=== PATIENT | female | born 1975 | race Caucasian/White ===

== ENCOUNTER → 2017-07-07 | Outpatient (CLI) | payer BC ==
--- NOTE | 2017-07-08 09:00 | MM ---
Reason for exam: screening (asymptomatic). Baseline mammogram. Physical Findings: Nurse did not find any significant physical abnormalities on exam. MG Screening Mammo w CAD Bilateral CC and MLO view(s) were taken. The breast tissue is heterogeneously dense. This may lower the sensitivity of mammography. No suspicious abnormality. These results were verbally communicated with the patient and result sheet given to the patient on 07/07/17. ASSESSMENT: Negative, BI-RAD 1 RECOMMENDATION: Routine screening mammogram of both breasts in 1 year.
== END | disposition home or self-care (01) ==
LOC: RADMAMWWP 14:44
PROVIDERS: ATTEND Family Medicine
DX: Z12.31 Encounter for screening mammogram for malignant neoplasm of breast (principal)
CPT/HCPCS: 77067

== ENCOUNTER 2018-01-04 12:23 | Emergency (ER) | payer BC ==
[2018-01-04 12:30] VITALS: TEMP 98
[2018-01-04] MEDS ORDERED: ONDANSETRON 4 MG/2 ML VIAL IVP STA (13:16)
[2018-01-04] MEDS ORDERED: MORPHINE SULFATE 2 MG/ML SYRINGE IVP ONE (13:16)
[2018-01-04] MEDS ORDERED: MAG HYDROX/AL HYDROX/SIMETH 30 ML, HYOSCYAMINE ELIXIR 10 ML, CIMETIDINE HCL 300 MG, LID... PO STA ×4 (13:17)
--- NOTE | 2018-01-04 13:19 | ED ---
Abdominal Pain HPI - General Chief Complaint: Abdominal Pain Stated Complaint: upper back pain, radiating to front,nausea, delgado Time Seen by Provider: 01/04/18 12:33 Source: patient, RN notes reviewed Mode of arrival: ambulatory Limitations: no limitations - History of Present Illness Initial Comments: This a 42-year-old female presents emergency Department chief complaint of epigastric pain since last Friday. Patient states been persistent states it initially started in her back. Patient states that she has associated nausea with no vomiting no diarrhea no constipation. Denies any dysuria or hematuria. Patient had a prior cholecystectomy and tubal ligation. 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 She states her mom and sister had surgery on her pancreas. She has no history of pancreatitis. Denies fever, chills. - Related Data Home Medications Medication Instructions Recorded Confirmed HYDROcodone/APAP 7.5-325MG [[place] 1 each PO Q6HR PRN 07/11/14 08/12/15 7.5-325] Cetirizine HCl [Zyrtec] 10 mg PO DAILY 07/12/14 08/12/15 Previous Rx's Medication Instructions Recorded HYDROcodone/APAP 5-325MG [[place] 1 tab PO Q6HR PRN #30 tab 08/12/15 5-325] Naproxen [Naprosyn] 500 mg PO Q12HR #60 tab 08/12/15 Allergies Allergy/AdvReac Type Severity Reaction Status Date / Time ofloxacin [From Floxin] Allergy Rash/Hives Verified 01/04/18 12:30 Penicillins Allergy Rash/Hives Verified 01/04/18 12:30 Review of Systems ROS Statement: Those systems with pertinent positive or pertinent negative responses have been documented in the HPI. ROS Other: All systems not noted in ROS Statement are negative. Past Medical History Past Medical History: Asthma, Seizure Disorder Additional Past Medical History / Comment(s): exercise induced asthma, migraines , hx. seizure >10 yrs. ago, has never had one since-unknown cause History of Any Multi-Drug Resistant Organisms: None Reported Past Surgical History: Appendectomy, Cholecystectomy, Tonsillectomy, Tubal Ligation Additional Past Surgical History / Comment(s): nasal surg. Past Anesthesia/Blood Transfusion Reactions: No Reported Reaction Past Psychological History: Anxiety, Depression Smoking Status: Current every day smoker Past Alcohol Use History: Occasional Past Drug Use History: Marijuana - Past Family History Mother Family Medical History: No Reported History General Exam Limitations: no limitations General appearance: alert, in no apparent distress Head exam: Present: atraumatic, normocephalic, normal inspection Neck exam: Present: normal inspection, full ROM. Absent: tenderness, meningismus, lymphadenopathy Respiratory exam: Present: normal lung sounds bilaterally. Absent: respiratory distress, wheezes, rales, rhonchi, stridor Cardiovascular Exam: Present: regular rate, normal rhythm, normal heart sounds. Absent: systolic murmur, diastolic murmur, rubs, gallop, clicks GI/Abdominal exam: Present: soft, tenderness (mild epigastric), normal bowel sounds. Absent: distended, guarding, rebound, rigid Back exam: Present: full ROM. Absent: tenderness, CVA tenderness (R), CVA tenderness (L), paraspinal tenderness, vertebral tenderness Skin exam: Present: warm, dry, intact, normal color. Absent: rash Course Vital Signs 01/04/18 01/04/18 12:28 14:04 Temperature 98 F Pulse Rate 90 67 Respiratory 18 16 Rate Blood Pressure 148/103 117/79 O2 Sat by Pulse 98 98 Oximetry Medical Decision Making - Medical Decision Making 42-year-old female presents emergency department for abdominal discomfort which has been persistent since last Friday. Patient has evidence of a descending and transverse colitis. Patient is having no bowel movements, melena or hematochezia. Patient states pain has been persistent. Patient will be discharged with follow-up to Dr. Melo her PCP and GI. Return parameters were discussed. - Lab Data Result diagrams: 01/04/18 13:03 01/04/18 13:03 Lab Results 01/04/18 01/04/18 01/04/18 Range/Units 13:03 13:03 13:03 WBC 8.7 (3.8-10.6) k/uL RBC 4.07 (3.80-5.40) m/uL Hgb 11.6 (11.4-16.0) gm/dL Hct 36.2 (34.0-46.0) % MCV 88.9 (80.0-100.0) fL MCH 28.5 (25.0-35.0) pg MCHC 32.1 (31.0-37.0) g/dL RDW 16.3 H (11.5-15.5) % Plt Count 274 (150-450) k/uL Neutrophils % 61 % Lymphocytes % 25 % Monocytes % 6 % Eosinophils % 6 % Basophils % 1 % Neutrophils # 5.3 (1.3-7.7) k/uL Lymphocytes # 2.1 (1.0-4.8) k/uL Monocytes # 0.5 (0-1.0) k/uL Eosinophils # 0.5 (0-0.7) k/uL Basophils # 0.1 (0-0.2) k/uL Hypochromasia Slight Anisocytosis Slight Sodium 139 (137-145) mmol/L Potassium 4.5 (3.5-5.1) mmol/L Chloride 110 H (98-107) mmol/L Carbon Dioxide 21 L (22-30) mmol/L Anion Gap 8 mmol/L BUN 15 (7-17) mg/dL Creatinine 0.78 (0.52-1.04) mg/dL Est GFR (CKD-EPI)AfAm >90 (>60 ml/min/1.73 sqM) Est GFR (CKD-EPI)NonAf >90 (>60 ml/min/1.73 sqM) Glucose 85 (74-99) mg/dL Calcium 9.4 (8.4-10.2) mg/dL Total Bilirubin 0.3 (0.2-1.3) mg/dL AST 12 L (14-36) U/L ALT 22 (9-52) U/L Alkaline Phosphatase 68 (38-126) U/L Total Protein 7.0 (6.3-8.2) g/dL Albumin 4.1 (3.5-5.0) g/dL Amylase 45 (30-110) U/L Lipase 43 (23-300) U/L Urine Color Yellow Urine Appearance Clear (Clear) Urine pH 6.5 (5.0-8.0) Ur Specific [place] 1.017 (1.001-1.035) Urine Protein Negative (Negative) Urine Glucose (UA) Negative (Negative) Urine Ketones Negative (Negative) Urine Blood Moderate H (Negative) Urine Nitrite Negative (Negative) Urine Bilirubin Negative (Negative) Urine Urobilinogen <2.0 (<2.0) mg/dL Ur Leukocyte Esterase Negative (Negative) Urine RBC 9 H (0-5) /hpf Urine WBC <1 (0-5) /hpf Ur Squamous Epith Cells 2 (0-4) /hpf Urine Bacteria Rare H (None) /hpf Urine Mucus Rare H (None) /hpf Disposition Clinical Impression: Abdominal pain, Colitis Disposition: HOME SELF-CARE Condition: Stable Instructions: Colitis (ED) Additional Instructions: Please return to the Emergency Department if symptoms worsen or any other concerns. Is patient prescribed a controlled substance at d/c from ED?: No Referrals: Zafar Melo MD [Primary Care Provider] - 1-2 days Juancarlos Goins MD [STAFF PHYSICIAN] - 1-2 days Time of Disposition: 14:35
[2018-01-04 13:31] LABS: Appearance,Urine Clear (Clear); Bacteria,Urine Rare /hpf; Bilirubin,Urine Negative (Negative); Blood,Urine Moderate (Negative); Color,Urine Yellow; Glucose,Urine (UA) Negative (Negative); Ketones,Urine Negative (Negative); Leukocyte Esterase,Urine Negative (Negative); Mucus,Urine Rare /hpf; Nitrite,Urine Negative (Negative); PH, Urine 6.5 (5.0-8.0); Protein,Urine Negative (Negative); RBC,Urine 9 /hpf (0-5); Specific Gravity,Urine 1.017 (1.001-1.035); Squamous Epithelial Cell,Urine 2 /hpf (0-4); Urobilinogen,Urine <2.0 mg/dL (<2.0); WBC,Urine <1 /hpf (0-5)
[2018-01-04 13:33] LABS: Anisocytosis Slight; Basophils # (A) 0.1 k/uL (0-0.2); Basophils % (A) 1 %; Eosinophils # (A) 0.5 k/uL (0-0.7); Eosinophils % (A) 6 %; HCT 36.2 % (34.0-46.0); HGB 11.6 gm/dL (11.4-16.0); Hypochromasia Slight; Lymphocytes # (A) 2.1 k/uL (1.0-4.8); Lymphocytes % (A) 25 %; MCH 28.5 pg (25.0-35.0); MCHC 32.1 g/dL (31.0-37.0); MCV 88.9 fL (80.0-100.0); Mean Platelet Volume 7.6; Monocytes # (A) 0.5 k/uL (0-1.0); Monocytes % (A) 6 %; Neutrophils # (A) 5.3 k/uL (1.3-7.7); Neutrophils % (A) 61 %; Platelet Count 274 k/uL (150-450); RBC 4.07 m/uL (3.80-5.40); RDW 16.3 % (11.5-15.5); WBC 8.7 k/uL (3.8-10.6)
[2018-01-04 13:41] LABS: Anion Gap 8 mmol/L; Blood Urea Nitrogen 15 mg/dL (7-17); Carbon Dioxide 21 mmol/L (22-30); Chloride 110 mmol/L (98-107); Glucose 85 mg/dL (74-99); Potassium 4.5 mmol/L (3.5-5.1); Sodium 139 mmol/L (137-145)
[2018-01-04 13:42] LABS: ALT 22 U/L (9-52); AST 12 U/L (14-36); Albumin 4.1 g/dL (3.5-5.0); Alkaline Phosphatase 68 U/L (38-126); Amylase 45 U/L (30-110); Calcium 9.4 mg/dL (8.4-10.2); Lipase 43 U/L (23-300); Total Bilirubin 0.3 mg/dL (0.2-1.3)
--- NOTE | 2018-01-04 14:04 | CT ---
EXAMINATION TYPE: CT abdomen pelvis w con DATE OF EXAM: 01/04/2018 REFERENCE: Previous study dated 08/12/2015 HISTORY: Pain HISTORY: epigastric pain CT DLP: 625.5 mGy Automated exposure control for dose reduction was used. TECHNIQUE: Helical acquisition through the abdomen and pelvis was obtained following the oral ingesti on of without Oral Contrast and following intravenous administration of 100 mL of Isovue 300. The floresita a was reformatted in axial, coronal and sagittal projections. FINDINGS: Visualized portions of the lungs are clear. There is no pleural or pericardial fluid. The heart is not enlarged. Within the abdomen, the gallbladder is been removed. Liver and spleen are normal. Both adrenal glands are normal. There is a 1 cm cyst in the mid polar region of the left kidney and a smaller 1 cm cyst in the region of the lower pole of the left kidney there is a 1.4 cm cyst in the lower pole of the right kidney an d a 1.5 cm cyst in the mid polar region of the right kidney. The pancreas is unremarkable. There is no significant retroperitoneal, iliac or inguinal adenopathy. The bladder is unremarkable. The uterus is retroverted. There is evidence of a recent ovulation in the left ovary with a 1.4 cm ir regular enhancing cyst. There is follicular change in the left ovary. There is no significant diverticular change. There is mucosal thickening involving the transverse col on and ascending colons. Small bowel loops are normal in caliber. There is no free fluid and no free air. IMPRESSION: 1. COLONIC THICKENING INVOLVING THE ASCENDING AND TRANSVERSE COLONS. PLEASE CORRELATE FOR COLITIS. 2. RENAL CYSTIC DISEASE BILATERALLY. 3. EVIDENCE OF RECENT OVULATION IN THE LEFT OVARY.
[2018-01-04 14:06] VITALS: PULSE 67; RESP 16
[2018-01-04] MEDS ORDERED: HYDROmorphone 1 MG/ML 1 ML SYRINGE IVP STA (14:40)
[2018-01-04] MEDS ORDERED: methylPREDNISolone SOD SUCCI 125 MG/2 ML VIAL IV STA (14:40)
[2018-01-04] MEDS ORDERED: ACET/COD 300 MG/30 MG STARTER PACK 6 TAB BTL PO STA (14:40)
[2018-01-04] MEDS ORDERED: HYDROmorphone 1 MG/ML 1 ML SYRINGE IM STA (14:52)
[2018-01-04 15:09] VITALS: BP 119/75
== END 2018-01-04 15:10 | disposition home or self-care (01) ==
LOC: EC 12:23
DX: K52.9 Noninfective gastroenteritis and colitis, unspecified (principal); R06.00 Dyspnea, unspecified; F17.200 Nicotine dependence, unspecified, uncomplicated; Z90.49 Acquired absence of other specified parts of digestive tract; Z98.51 Tubal ligation status; Z79.899 Other long term (current) drug therapy; Z88.1 Allergy status to other antibiotic agents; Z88.0 Allergy status to penicillin
CPT/HCPCS: 99284; 96374; 96375 ×2; 96372; 36415; 80053; 82150; 83690; 85025; 81001; 74177; J2930; J2405; J2270; J1170; Q9967

== ENCOUNTER 2018-01-22 10:34 | Day surgery (SDC) | payer BC ==
[2018-01-21 08:26] VITALS: BMI 26.6
[~2018-01-22 10:34] MED LIST: LIDOCAINE 1% 20 ML VIAL (10MG/ML) FOR IV START INTRADERMA PRN
[2018-01-22 11:02] VITALS: TEMP 98
[2018-01-22] MEDS: LACTATED RINGERS 1,000 ML IV SCH ×2 (11:09→11:36)
[2018-01-22] MEDS ORDERED: MIDAZOLAM 2 MG/2 ML VIAL ONE (11:36)
[2018-01-22] MEDS ORDERED: PROPOFOL 10 MG/ML 20 ML VIAL IV ONE (11:36)
--- NOTE | 2018-01-22 12:50 | P.PCN ---
Date of Procedure: 01/22/18 Description of Procedure: Brief history: Patient is a pleasant 42-year-old female who presents for scheduled upper endoscopy as well as colonoscopy as a part of evaluation of recent symptoms of esophageal dysphagia as well as a computed tomography scan which showed colonic thickening of the ascending transverse colon last month. The patient reports that the dysphagia is new onset and describes food sticking in her esophagus. She also had a computed tomography scan of the abdomen done last month which showed colonic thickening but denies any change in bowel habits, constipation, diarrhea, hematochezia or melena. Procedure performed: Esophagogastroduodenoscopy with biopsy Colonoscopy Estimated blood loss: Minimal. Preoperative diagnosis: Esophageal dysphagia, abnormal CT findings (colonic thickening of the ascending and transverse colons) Anesthesia: MAC Procedure: After informed consent was obtained from the patient was brought into the endoscopy unit and IV sedation was administered by anesthesia under continuous monitoring. Initially upper endoscopy was done. The Olympus GF 190 video endoscope was inserted inserted into the mouth and esophagus intubated without any difficulty and was gradually advanced into the stomach and duodenum and carefully examined. The bulb and second part of the duodenum appeared normal except for some mild scattered erythema suggestive of duodenitis which was biopsied. The scope was then withdrawn into the stomach adequately insufflated with air and upon careful examination the antrum and body, cardia and fundus appeared grossly normal. The patient had erythema which was scattered and linear, moderate in severity of the antrum and body which were biopsied, suggestive of gastritis. The scope was then withdrawn into the esophagus. The GE junction was located at 37 cm to the incisors. It appeared regular with no erythema erosions or ulcerations. Biopsies of the midesophagus were taken to rule out eosinophilic esophagitis given reports of dysphagia. Rest of the esophagus appeared normal. Patient tolerated the procedure well. At this time the patient continued to remain sedation. Initial digital rectal examination was normal. Olympus CF 190 video colonoscope was then inserted into the rectum and gradually advanced to the cecum without any difficulty. Careful examination was performed as the scope was gradually being withdrawn. The prep was good. The cecum, ascending colon, transverse colon, descending colon, sigmoid colon and rectum appeared normal. Retroflexion was performed in the rectum and no lesions were noted, mild internal hemorrhoids were seen. Patient tolerated the procedure well. Impression: 1. Gastritis, biopsied. Duodenitis, biopsied. Mid esophageal biopsies for dysphagia. 2. Mild internal hemorrhoids, otherwise colonoscopy unremarkable with no colitis seen in the areas described on prior computed tomography scan. Recommendations: Findings of this examination were discussed with the patient as well as her friend. Okay to continue diet. Await pathology from biopsies. Further management pending findings of biopsies. Repeat colonoscopy at 50 years of age or sooner if further signs or symptoms develop.
[2018-01-22 13:04] VITALS: BP 107/63; PULSE 77; RESP 16
== END 2018-01-22 13:23 | disposition home or self-care (01) ==
LOC: ORWHC2ENDO 10:34
PROVIDERS: ATTEND Internal Medicine
DX: K29.50 Unspecified chronic gastritis without bleeding (principal); K21.0 Gastro-esophageal reflux disease with esophagitis; K29.80 Duodenitis without bleeding; K64.8 Other hemorrhoids; R93.3 Abnormal findings on diagnostic imaging of other parts of digestive tract; J45.909 Unspecified asthma, uncomplicated; R56.9 Unspecified convulsions; Z79.891 Long term (current) use of opiate analgesic; Z88.1 Allergy status to other antibiotic agents; Z88.0 Allergy status to penicillin; Z98.51 Tubal ligation status
CPT/HCPCS: 81025; 88305; 45378; 43239; J2250; J2704

== ENCOUNTER 2021-07-30 12:48 | Inpatient (IN) | payer BC, OTHER ==
--- NOTE | 2021-07-30 14:50 | US ---
EXAMINATION TYPE: US venous doppler duplex UE RT DATE OF EXAM: 07/30/2021 COMPARISON: NONE CLINICAL HISTORY: pain and swelling. swelling to right arm and neck for 3 days, no h/o dvt SIDE PERFORMED: Right Right Arm: No flow detected within right brachial vein branch extending up through mid subclavian vei n, internal echoes, not compressible. Upper arm basilic did not compress or have blood flow either. P robable DVT and SVT within right arm Grayscale, color doppler, spectral doppler imaging performed of the deep veins of the right upper ext remity. There is normal flow, compressibility and vascular waveforms. IMPRESSION: No ultrasound evidence for acute deep or superficial venous thrombosis in the right upper extremity.
[2021-07-30] MEDS ORDERED: MORPHINE SULFATE 2 MG/ML SYRINGE IVP STA (16:30)
[2021-07-30 17:03] LABS: Anisocytosis Slight; Basophils # (A) 0.1 k/uL (0-0.2); Basophils % (A) 1 %; Eosinophils # (A) 0.2 k/uL (0-0.7); Eosinophils % (A) 2 %; HCT 33.9 % (34.0-46.0); HGB 10.6 gm/dL (11.4-16.0); Hypochromasia Slight; Lymphocytes # (A) 1.8 k/uL (1.0-4.8); Lymphocytes % (A) 19 %; MCHC 31.4 g/dL (31.0-37.0); MCV 92.6 fL (80.0-100.0); Mean Platelet Volume 8.6; Monocytes # (A) 0.4 k/uL (0-1.0); Monocytes % (A) 4 %; Neutrophils # (A) 7.1 k/uL (1.3-7.7); Neutrophils % (A) 73 %; Platelet Count 308 k/uL (150-450); RBC 3.66 m/uL (3.80-5.40); WBC 9.8 k/uL (3.8-10.6)
[2021-07-30 17:23] LABS: ALT 14 U/L (4-34); AST 14 U/L (14-36); African American GFR (CKD) >90 (>60 ml/min/1.73 sqM); Albumin 3.7 g/dL (3.5-5.0); Alkaline Phosphatase 78 U/L (38-126); Anion Gap 8 mmol/L; Blood Urea Nitrogen 9 mg/dL (7-17); Calcium 8.6 mg/dL (8.4-10.2); Carbon Dioxide 23 mmol/L (22-30); Chloride 108 mmol/L (98-107); Glucose 100 mg/dL (74-99); Non-African American GFR(CKD) >90 (>60 ml/min/1.73 sqM); Potassium 3.8 mmol/L (3.5-5.1); Sodium 139 mmol/L (137-145); Total Bilirubin 0.2 mg/dL (0.2-1.3); Total Protein 6.4 g/dL (6.3-8.2)
--- NOTE | 2021-07-30 17:35 | ED ---
Extremity Problem HPI - General Source: patient, RN notes reviewed Mode of arrival: ambulatory Limitations: no limitations - History of Present Illness MD Complaint: extremity pain, extremity swelling Onset/Timin -: days(s) Location: right, upper extremity History of Same: No <Maria C Basilio - Last Filed: 07/30/21 19:20> <Ester Mcgarry - Last Filed: 08/01/21 08:52> - General Chief complaint: Extremity Problem,Nontraumatic Stated complaint: Arm Pain,Pos Blood Clot Time Seen by Provider: 07/30/21 15:56 - History of Present Illness Initial comments: This is a 45-year-old female who presents to the emergency department for pain and swelling of the right arm and axilla. Symptoms have been present for the last few days, and have been progressing. She was initially evaluated at urgent care, who advised she come to the emergency department for a possible blood clot. Patient states that she is unable to sleep at night due to the pain, and she has tried taking [place] which she had at home from a previous prescription, and this has not offered any relief. States that she feels like the pain is traveling to her back and upper neck which scares her. She does have intermittent episodes of shortness of breath, chest pain, and tachycardia. She is unsure if this has worsened since experiencing the swelling. Denies any history of blood clots. Patient denies any fevers, chills, sore throat, visual changes, cough, abdominal pain, nausea, vomiting, diarrhea, constipation, dysuria, hematuria, back pain, headaches, or weakness. (Maria C Basilio) - Related Data Previous Rx's Medication Instructions Recorded Apixaban [Eliquis Starter Pack 5 - 10 mg PO DIRECTED 30 Days 07/31/21 (for VTE)] #1 each Allergies Allergy/AdvReac Type Severity Reaction Status Date / Time ofloxacin [From Floxin] Allergy Rash/Hives Verified 07/30/21 16:59 Penicillins Allergy Rash/Hives Verified 07/30/21 16:59 Review of Systems ROS Other: All systems not noted in ROS Statement are negative. <Maria C Basilio - Last Filed: 07/30/21 19:20> ROS Other: All systems not noted in ROS Statement are negative. <Ester Mcgarry - Last Filed: 08/01/21 08:52> ROS Statement: Those systems with pertinent positive or pertinent negative responses have been documented in the HPI. Past Medical History Past Medical History: Asthma, Musculoskeletal Disorder, Seizure Disorder Additional Past Medical History / Comment(s): migraines, hx. seizure >10 yrs. ago, has never had one since-unknown cause; back pain History of Any Multi-Drug Resistant Organisms: None Reported Past Surgical History: Appendectomy, Cholecystectomy, Tonsillectomy, Tubal Ligation Additional Past Surgical History / Comment(s): nasal surg. Past Anesthesia/Blood Transfusion Reactions: No Reported Reaction Past Psychological History: Anxiety, Depression Smoking Status: Current every day smoker Past Alcohol Use History: Occasional Past Drug Use History: Marijuana - Past Family History Mother Family Medical History: No Reported History <Maria C Basilio - Last Filed: 07/30/21 19:20> General Exam Limitations: no limitations General appearance: alert, in no apparent distress Head exam: Present: atraumatic, normocephalic, normal inspection Respiratory exam: Present: normal lung sounds bilaterally. Absent: respiratory distress, wheezes, rales, rhonchi, stridor Cardiovascular Exam: Present: regular rate, normal rhythm, normal heart sounds. Absent: systolic murmur, diastolic murmur, rubs, gallop, clicks Extremities exam: Present: other (Swelling of the right arm, starting at the antecubital fossa and spreading proximally. Swelling of the right axilla. No erythema.) Neurological exam: Present: alert, oriented X3, CN II-XII intact Psychiatric exam: Present: normal affect, normal mood Skin exam: Present: warm, dry, intact, normal color. Absent: rash <Maria C Basilio - Last Filed: 07/30/21 19:20> Course Vital Signs 07/30/21 07/30/21 07/30/21 13:50 20:34 23:59 Temperature 98.1 F Pulse Rate 70 71 58 L Respiratory 16 18 18 Rate Blood Pressure 149/86 142/79 143/82 O2 Sat by Pulse 99 98 98 Oximetry 07/31/21 07/31/21 07/31/21 06:32 08:22 13:27 Temperature Pulse Rate 84 64 69 Respiratory 18 18 18 Rate Blood Pressure 124/70 146/79 109/70 O2 Sat by Pulse 100 100 99 Oximetry 07/31/21 14:55 Temperature Pulse Rate 64 Respiratory 18 Rate Blood Pressure 114/84 O2 Sat by Pulse 95 Oximetry Medical Decision Making - Lab Data Result diagrams: 07/30/21 16:35 07/30/21 16:35 - Radiology Data Radiology results: report reviewed, image reviewed <Maria C Basilio - Last Filed: 07/30/21 19:20> - Lab Data Result diagrams: 08/01/21 06:10 08/01/21 06:10 <MalgorzataSeter Andrea - Last Filed: 08/01/21 08:52> - Medical Decision Making This is a 45-year-old female who presents to the emergency department for right arm pain and swelling. Ultrasound reveals a DVT. Given that the pain is spreading, and the patient is unsure if she has had worsening of palpitations, tachycardia, or shortness of breath, will proceed with a CTA for possible PE. CTA reveals scattered pulmonary emboli with possible mild right heart strain. Patient will be admitted and started on high intensity heparin protocol with vascular consult. Echocardiogram ordered. This case was discussed in detail with the attending ED physician. Presentation, findings, and treatment plan discussed in detail as well. (Maria C Basilio) - Lab Data Lab Results 07/30/21 07/30/21 07/30/21 Range/Units 16:35 16:35 18:03 WBC 9.8 (3.8-10.6) k/uL RBC 3.66 L (3.80-5.40) m/uL Hgb 10.6 L (11.4-16.0) gm/dL Hct 33.9 L (34.0-46.0) % MCV 92.6 (80.0-100.0) fL MCH 29.0 (25.0-35.0) pg MCHC 31.4 (31.0-37.0) g/dL RDW 17.0 H (11.5-15.5) % Plt Count 308 (150-450) k/uL MPV 8.6 Neutrophils % 73 % Lymphocytes % 19 % Monocytes % 4 % Eosinophils % 2 % Basophils % 1 % Neutrophils # 7.1 (1.3-7.7) k/uL Lymphocytes # 1.8 (1.0-4.8) k/uL Monocytes # 0.4 (0-1.0) k/uL Eosinophils # 0.2 (0-0.7) k/uL Basophils # 0.1 (0-0.2) k/uL Hypochromasia Slight Anisocytosis Slight PT (9.0-12.0) sec INR (<1.2) APTT (22.0-30.0) sec Sodium 139 (137-145) mmol/L Potassium 3.8 (3.5-5.1) mmol/L Chloride 108 H (98-107) mmol/L Carbon Dioxide 23 (22-30) mmol/L Anion Gap 8 mmol/L BUN 9 (7-17) mg/dL Creatinine 0.67 (0.52-1.04) mg/dL Est GFR (CKD-EPI)AfAm >90 (>60 ml/min/1.73 sqM) Est GFR (CKD-EPI)NonAf >90 (>60 ml/min/1.73 sqM) Glucose 100 H (74-99) mg/dL Calcium 8.6 (8.4-10.2) mg/dL Total Bilirubin 0.2 (0.2-1.3) mg/dL AST 14 (14-36) U/L ALT 14 (4-34) U/L Alkaline Phosphatase 78 (38-126) U/L Troponin I <0.012 (0.000-0.034) ng/mL NT-Pro-B Natriuret Pep pg/mL Total Protein 6.4 (6.3-8.2) g/dL Albumin 3.7 (3.5-5.0) g/dL 07/30/21 07/30/21 Range/Units 18:03 18:03 WBC (3.8-10.6) k/uL RBC (3.80-5.40) m/uL Hgb (11.4-16.0) gm/dL Hct (34.0-46.0) % MCV (80.0-100.0) fL MCH (25.0-35.0) pg MCHC (31.0-37.0) g/dL RDW (11.5-15.5) % Plt Count (150-450) k/uL MPV Neutrophils % % Lymphocytes % % Monocytes % % Eosinophils % % Basophils % % Neutrophils # (1.3-7.7) k/uL Lymphocytes # (1.0-4.8) k/uL Monocytes # (0-1.0) k/uL Eosinophils # (0-0.7) k/uL Basophils # (0-0.2) k/uL Hypochromasia Anisocytosis PT 10.1 (9.0-12.0) sec INR 0.9 (<1.2) APTT 18.0 L (22.0-30.0) sec Sodium (137-145) mmol/L Potassium (3.5-5.1) mmol/L Chloride (98-107) mmol/L Carbon Dioxide (22-30) mmol/L Anion Gap mmol/L BUN (7-17) mg/dL Creatinine (0.52-1.04) mg/dL Est GFR (CKD-EPI)AfAm (>60 ml/min/1.73 sqM) Est GFR (CKD-EPI)NonAf (>60 ml/min/1.73 sqM) Glucose (74-99) mg/dL Calcium (8.4-10.2) mg/dL Total Bilirubin (0.2-1.3) mg/dL AST (14-36) U/L ALT (4-34) U/L Alkaline Phosphatase (38-126) U/L Troponin I (0.000-0.034) ng/mL NT-Pro-B Natriuret Pep 78 pg/mL Total Protein (6.3-8.2) g/dL Albumin (3.5-5.0) g/dL Critical Care Time Critical Care Time: Yes <Ester Mcgarry - Last Filed: 08/01/21 08:52> Critical Care Time: 32 minutes (Ester Mcgarry) Disposition <Maria C Basilio - Last Filed: 07/30/21 19:20> <Ester Mcgarry - Last Filed: 08/01/21 08:52> Clinical Impression: Deep vein thrombosis (DVT) of upper extremity, Pulmonary embolism Disposition: ADMITTED IP TO THIS HOSP
--- NOTE | 2021-07-30 17:46 | CT ---
EXAMINATION TYPE: CT chest angio for PE CT DLP: 286.1 mGycm, Automated exposure control for dose reduction was used. DATE OF EXAM: 07/30/2021 5:10 PM COMPARISON: Right upper extremity duplex 07/30/2021 CLINICAL INDICATION:Female, 45 years old with history of back pain, tachycardia, right arm DVT; right arm DVT, posterior chest pain, tachycardia TECHNIQUE/CONTRAST: CTA scan of the thorax is performed with IV Contrast, patient injected with 68cc mL of Isovue 370, pu lmonary embolism protocol. MIP images are created and reviewed. FINDINGS: Pulmonary Artery: There are filling defects in within the right lower lobe, right upper lobe, left up per lobe subsegmental pulmonary arteries. No definitive evidence of intraventricular septal straighte galdino. Lungs/Pleura: No evidence of focal consolidation, pleural effusion or pneumothorax. Airway: Large airways are patent. Heart: Heart is within normal limits for size. Vasculature: No evidence of aortic aneurysm. Mediastinum: No gross evidence of adenopathy. Musculoskeletal: Mild degenerative disc disease changes are present throughout the thoracolumbar spin e. Soft Tissues: There is fat stranding changes within the right axilla surrounding the axillary vessels . Lower neck: No significant findings. Upper Abdomen: Gallbladder is surgically absent. Nonobstructing left renal calculus measuring 5 mm. IMPRESSION: 1. Scattered pulmonary emboli with reflux of contrast into the liver which could suggest mild right h eart strain. Correlate with serum cardiac markers. 2. Right axillary fat stranding changes around the vessels so it known right upper extremity deep vei n thrombosis.
[2021-07-30 18:40] LABS: INR 0.9 (<1.2); Prothrombin Time 10.1 sec (9.0-12.0)
[2021-07-30] MEDS ORDERED: HYDROmorphone 0.5 MG/0.5 ML SYRINGE IVP STA (18:55)
[2021-07-30] MEDS ORDERED: KETOROLAC 15 MG/ML 1 ML VIAL IVP STA (18:55)
[2021-07-30] MEDS ORDERED: HEPARIN SODIUM 1,000 UN/ML (10ML VL) IV ONE (19:03)
[2021-07-30] MEDS ORDERED: HEPARIN SODIUM 1,000 UN/ML (10ML VL) IV PRN (19:03)
[2021-07-30] MEDS ORDERED: LORazepam 0.5 MG TAB PO PRN (19:18)
[2021-07-30] MEDS ORDERED: NALOXONE 0.4 MG/ML 1 ML VIAL IV PRN (19:18)
[2021-07-30] MEDS ORDERED: ONDANSETRON 4 MG/2 ML VIAL IVP PRN (19:18)
[2021-07-30] MEDS ORDERED: HYDROmorphone 0.5 MG/0.5 ML SYRINGE IVP PRN (19:18)
[2021-07-30] MEDS ORDERED: ACETAMINOPHEN TAB 325 MG TAB PO PRN (19:18)
[2021-07-30] MEDS: HEPARIN SOD,PORK IN 0.45% NACL 25,000 UNIT in 0.45% NACL 1 250ML.BAG IV SCH (20:03)
[2021-07-31] MEDS: HYDROmorphone 1 MG/ML 1 ML SYRINGE IVP PRN ×5 (02:37→21:49)
[2021-07-31] MEDS: lisinopriL 5 MG TAB PO SCH (08:23)
[2021-07-31] MEDS: NICOTINE 14MG/24HR PATCH TRANSDERM SCH (08:23)
[2021-07-31 09:01] LABS: Anisocytosis Slight; Basophils # (A) 0.1 k/uL (0-0.2); Basophils % (A) 1 %; Eosinophils # (A) 0.3 k/uL (0-0.7); Eosinophils % (A) 4 %; HGB 9.9 gm/dL (11.4-16.0); Hypochromasia Slight; Lymphocytes # (A) 2.5 k/uL (1.0-4.8); Lymphocytes % (A) 32 %; MCH 28.2 pg (25.0-35.0); MCHC 30.1 g/dL (31.0-37.0); MCV 93.8 fL (80.0-100.0); Mean Platelet Volume 8.7; Monocytes # (A) 0.5 k/uL (0-1.0); Monocytes % (A) 6 %; Neutrophils # (A) 4.3 k/uL (1.3-7.7); Neutrophils % (A) 54 %; Platelet Count 288 k/uL (150-450); RBC 3.52 m/uL (3.80-5.40); RDW 16.3 % (11.5-15.5); WBC 7.8 k/uL (3.8-10.6)
--- NOTE | 2021-07-31 10:29 | CA ---
Transthoracic Echo Report Name: Domonique Berg Age: 45 Gender: F : 1975 Exam Date: 07/31/2021 07:26 Exam Location: [facility] Ht (in): 64 Wt (lb): 154 Ordering Physician: Maria C Basilio Attending/Referring Phys: Chairman Sabine Leiva RDCS Procedure CPT: Indications: Pulmonary embolism with right heart strain Cardiac Hx: No cardiac hx. Technical Quality: Good Contrast 1: Total Dose (mL): Contrast 2: Total Dose (mL): MEASUREMENTS (Male / Female) Normal Values 2D ECHO LV Diastolic Diameter PLAX 3.6 cm 4.2 - 5.9 / 3.9 - 5.3 cm LV Systolic Diameter PLAX 1.9 cm IVS Diastolic Thickness 1.1 cm 0.6 - 1.0 / 0.6 - 0.9 cm LVPW Diastolic Thickness 1.2 cm 0.6 - 1.0 / 0.6 - 0.9 cm LV Relative Wall Thickness 0.6 RV Internal Dim ED PLAX 1.9 cm LA Volume 37.4 cm??? 18 - 58 / 22 - 52 cm??? M-MODE Aortic Root Diameter MM 3.0 cm LA Systolic Diameter MM 2.2 cm LA Ao Ratio MM 0.7 MV E Point Septal Separation 0.8 cm AV Cusp Separation MM 1.8 cm DOPPLER AV Peak Velocity 137.0 cm/s AV Peak Gradient 7.5 mmHg MV Area PHT 3.7 cm??? MR Peak Velocity 182.7 cm/s MR Peak Gradient 13.4 mmHg Mitral E Point Velocity 102.6 cm/s Mitral A Point Velocity 57.8 cm/s Mitral E to A Ratio 1.8 MV Deceleration Time 205.1 ms MV E' Velocity 14.3 cm/s Mitral E to MV E' Ratio 7.2 TR Peak Velocity 203.2 cm/s TR Peak Gradient 16.5 mmHg Right Ventricular Systolic Press 19.9 mmHg FINDINGS Left Ventricle Mildly increased septal wall thickness. Mildly increased posterior wall thickness. Left ventricular ejection fraction is estimated at 55-60 %. Left ventricular cavity size normal. Right Ventricle The right ventricle is normal in size and function. No RV strain. TAPSE is 28mm. Right Atrium The right atrium is normal in size. Left Atrium The left atrium is normal in size. Mitral Valve Structurally normal mitral valve without significant stenosis or prolapse. There is no mitral regurgitation. Aortic Valve Structurally normal aortic valve without significant sclerosis or stenosis. There is no aortic regurgitation. Tricuspid Valve Structurally normal tricuspid valve without significant stenosis. Pulmonary artery systolic pressure is normal. Mild tricuspid regurgitation. Pulmonic Valve Structurally normal pulmonic valve without significant stenosis. There is no pulmonic regurgitation. Pericardium Normal pericardium without effusion. Aorta Normal aortic root dimension. CONCLUSIONS Technically difficult study for interpretation with poor echo windows Normal left ventricular dimension and systolic function Mild concentric left ventricular hypertrophy Overall normal intracardiac valves Please see above for further details Previewed by: Dr. Dima Doan MD (Electronically Signed) Final Date: 31 Jul 2021 10:27
--- NOTE | 2021-07-31 10:35 | P.GSCN ---
History of Present Illness Consult date: 07/31/21 Reason for Consult: Pulmonary embolism, right upper extremity DVT Requesting physician: Maria C Basilio History of present illness: This is a pleasant 45-year-old female who presented to the emergency department yesterday with complaints of right upper extremity swelling, discomfort, that was radiating into her neck. Symptoms began approximately 1 week ago. She had a upper extremity Doppler that showed extensive acute DVT in the brachial vein extending to the right axillary vein into the mid aspect of the subclavian vein. There is patent cephalic vein but occluded superficial basilic vein noted. Patient was also complaining of some shortness of breath therefore is part of her workup they did a chest CT angiogram that showed scattered bilateral emboli, with questionable mild right heart strain as there was reflux of contrast into the liver. Patient had troponins which were negative 3. Blood pressure 146/79, heart rate 64 respiratory rate 18. Oxygen is 98-100% on room air. She denies any previous history of blood clots, or clotting disorders. She states she does have a brother who has a history of DVTs however it was related to automobile accident injuries. Does admit to being a smoker, she recently went on a trip to [place] and flu their last Friday and return on Friday. So states she has lower extremity issues with varicose veins. She's had previous varicose vein stripping in the left lower extremity. Really denies any pain in her lower extremities but states that she was just given pain medication. She states that they do ache frequently. 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 Review of Systems A 14 point review systems was completed all pertinent positives and negatives as stated in the HPI. Past Medical History Past Medical History: Asthma, Musculoskeletal Disorder, Seizure Disorder Additional Past Medical History / Comment(s): migraines, hx. seizure >10 yrs. ago, has never had one since-unknown cause; back pain History of Any Multi-Drug Resistant Organisms: None Reported Past Surgical History: Appendectomy, Cholecystectomy, Tonsillectomy, Tubal Ligation Additional Past Surgical History / Comment(s): nasal surg. Past Anesthesia/Blood Transfusion Reactions: No Reported Reaction Past Psychological History: Anxiety, Depression Smoking Status: Current every day smoker Past Alcohol Use History: Occasional Past Drug Use History: Marijuana - Past Family History Mother Family Medical History: No Reported History Medications and Allergies Home Medications Medication Instructions Recorded Confirmed Type Apixaban [Eliquis Starter Pack 5 - 10 mg PO DIRECTED 30 Days 07/31/21 Rx (for VTE)] #1 each Allergies Allergy/AdvReac Type Severity Reaction Status Date / Time ofloxacin [From Floxin] Allergy Rash/Hives Verified 07/30/21 16:59 Penicillins Allergy Rash/Hives Verified 07/30/21 16:59 Surgical - Exam Vital Signs Temp Pulse Resp BP Pulse Ox 98.1 F 70 16 149/86 99 07/30/21 13:50 07/30/21 13:50 07/30/21 13:50 07/30/21 13:50 07/30/21 13:50 General appearance: The patient is alert, oriented, appears in no acute distress. HET: Head is normocephalic and atraumatic. Pupils are equal and reactive. Neck: Supple without lymphadenopathy. Trachea midline. Heart: S1 S2. Regular rate and rhythm. Lungs: Clear to auscultation bilaterally. Abdomen: Soft, nontender, nondistended. Extremities: Normal skin color and turgor. Right upper extremity with noted swelling from the elbow to shoulder and in the axilla region. Bilateral lower extremities with palpable PT and DP pulses. Varicose veins noted on the left lower extremity. Neurological: No focal deficits. Strength and sensation are grossly intact. Results - Labs 07/31/21 08:08 07/30/21 16:35 Abnormal Lab Results - Last 24 Hours (Table) 07/30/21 07/30/21 07/30/21 Range/Units 16:35 16:35 18:03 RBC 3.66 L (3.80-5.40) m/uL Hgb 10.6 L (11.4-16.0) gm/dL Hct 33.9 L (34.0-46.0) % RDW 17.0 H (11.5-15.5) % APTT 18.0 L (22.0-30.0) sec Chloride 108 H (98-107) mmol/L Glucose 100 H (74-99) mg/dL 07/31/21 Range/Units 00:22 RBC (3.80-5.40) m/uL Hgb (11.4-16.0) gm/dL Hct (34.0-46.0) % RDW (11.5-15.5) % APTT 67.3 H (22.0-30.0) sec Chloride (98-107) mmol/L Glucose (74-99) mg/dL Diabetes panel 07/30/21 Range/Units 16:35 Sodium 139 (137-145) mmol/L Potassium 3.8 (3.5-5.1) mmol/L Chloride 108 H (98-107) mmol/L Carbon Dioxide 23 (22-30) mmol/L BUN 9 (7-17) mg/dL Creatinine 0.67 (0.52-1.04) mg/dL Glucose 100 H (74-99) mg/dL Calcium 8.6 (8.4-10.2) mg/dL AST 14 (14-36) U/L ALT 14 (4-34) U/L Alkaline Phosphatase 78 (38-126) U/L Total Protein 6.4 (6.3-8.2) g/dL Albumin 3.7 (3.5-5.0) g/dL Calcium panel 07/30/21 Range/Units 16:35 Calcium 8.6 (8.4-10.2) mg/dL Albumin 3.7 (3.5-5.0) g/dL Pituitary panel 07/30/21 Range/Units 16:35 Sodium 139 (137-145) mmol/L Potassium 3.8 (3.5-5.1) mmol/L Chloride 108 H (98-107) mmol/L Carbon Dioxide 23 (22-30) mmol/L BUN 9 (7-17) mg/dL Creatinine 0.67 (0.52-1.04) mg/dL Glucose 100 H (74-99) mg/dL Calcium 8.6 (8.4-10.2) mg/dL Adrenal panel 07/30/21 Range/Units 16:35 Sodium 139 (137-145) mmol/L Potassium 3.8 (3.5-5.1) mmol/L Chloride 108 H (98-107) mmol/L Carbon Dioxide 23 (22-30) mmol/L BUN 9 (7-17) mg/dL Creatinine 0.67 (0.52-1.04) mg/dL Glucose 100 H (74-99) mg/dL Calcium 8.6 (8.4-10.2) mg/dL Total Bilirubin 0.2 (0.2-1.3) mg/dL AST 14 (14-36) U/L ALT 14 (4-34) U/L Alkaline Phosphatase 78 (38-126) U/L Total Protein 6.4 (6.3-8.2) g/dL Albumin 3.7 (3.5-5.0) g/dL - Imaging Comments: Right upper extremity venous Doppler that showed extensive acute DVT in the brachial vein extending to the right axillary vein into the mid aspect of the subclavian vein. Chest CT angiogram report scattered pulmonary emboli with reflux of contrast in to the liver which could suggest mild right heart strain. Correlate with serum cardiac markers. Right axillary fat stranding changes around the vessels so it is known right upper extremity deep vein thrombosis Echocardiogram with no RV strain. Assessment and Plan Assessment: 1. Bilateral pulmonary emboli without evidence of right heart strain 2. Right upper extremity DVT 3. Current smoker Plan: 1. Continue heparin drip for now, will transition to oral anticoagulation 2. Await echocardiogram 3. Bilateral lower extremity venous duplex ordered 4. Tobacco cessation 5. No plans for vascular surgical intervention at this time. Echocardiogram with no evidence of right heart strain. We'll discontinue heparin drip at this time and start Eliquis. Mando is cleared for discharge from vascular surgery. Follow-up with vascular surgery and 1 month. Thank you for this consultation. The impression and plan of care has been dictated as directed. Dr. Ingram I performed a history and examination of this patient, discussed the same with the dictator. I agree with the dictator's note ,documented as a scribe. Any additional findings or plans will be noted.
--- NOTE | 2021-07-31 13:22 | P.HPIM ---
History of Present Illness H&P Date: 07/31/21 Chief Complaint: right upper extremity swelling Patient is a 45-year-old female with a known history of asthma, anxiety/depression, migraine headaches, history of seizure 10 years ago not on any AEDs, currently everyday smoker and occasional marijuana use presents to ER with complaints of right upper extremity swelling for the past 3 days and has been having discomfort in the axilla, u upper arm upper arm radiating to the neck. She has been having worsening symptoms for the past 3 days. Denied any injury to the hand. 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 Denied any leg swelling. No complaints of chest pain. No dizziness or lightheadedness. Denies any pleuritic chest pain. Left upper extremity duplex scan showed extensive acute DVT in the brachial vein extending to the right axillary vein into the mid aspect of the subclavian vein. There is patent cephalic vein but occluded superficial basilic vein noted. CT angiogram of the chest showed scattered pulmonary emboli with reflux of contrast into the liver which could suggest mild right heart strain. Correlate with serum cardiac markers. Right axillary fat stranding changes around the vessels so it is known right upper extremity DVT 2D echocardiogram showed mildly increased septal wall thickness of the left ventricle. Right ventricle is normal in size and function. No RV strain. Overall normal intracardiac valves. Laboratory test showed WBC is 9.8 hemoglobin 10.6 and platelets 308 Sodium 139 potassium 3.8 chloride 108 bicarb is 23 BUN 8 and creatinine 0.67 liver enzymes are not elevated and troponin x3 negative proBNP 78 Patient denied any use of oral contraceptive pills currently. No family history of hypercoagulability. Patient denied any weight loss. No hematemesis or melena. Currently complains of abdominal pain. No cough sputum production. Denied any hemoptysis. Denied any recent illnesses. Denied any recent COVID-19 infection. Review of Systems Constitutional: Patient denies any fever or chills . No generalized weakness or weight loss. Abdomen: Patient denied nausea vomiting and diarrhea and abdominal pain. Cardiovascular: Patient denies any chest pain or short of breath no palpitations. Respiratory: patient denied any cough is from production. No shortness of breath Neurologic: Patient denied any numbness or tingling headache. Musculoskeletal: Patient denies any complaints of joint swelling or deformity.right hand swelling. Skin: Negative Psychiatric: Negative Endocrine: No heat or cold intolerance. No recent weight gain. Genitourinary: No dysuria or hematuria. All other 14 point ROS negative except the above Past Medical History Past Medical History: Asthma, Musculoskeletal Disorder, Seizure Disorder Additional Past Medical History / Comment(s): migraines, hx. seizure >10 yrs. ago, has never had one since-unknown cause; back pain History of Any Multi-Drug Resistant Organisms: None Reported Past Surgical History: Appendectomy, Cholecystectomy, Tonsillectomy, Tubal Ligation Additional Past Surgical History / Comment(s): nasal surg. Past Anesthesia/Blood Transfusion Reactions: No Reported Reaction Past Psychological History: Anxiety, Depression Smoking Status: Current every day smoker Past Alcohol Use History: Occasional Past Drug Use History: Marijuana - Past Family History Mother Family Medical History: No Reported History Medications and Allergies Home Medications Medication Instructions Recorded Confirmed Type Apixaban [Eliquis Starter Pack 5 - 10 mg PO DIRECTED 30 Days 07/31/21 Rx (for VTE)] #1 each Allergies Allergy/AdvReac Type Severity Reaction Status Date / Time ofloxacin [From Floxin] Allergy Rash/Hives Verified 07/30/21 16:59 Penicillins Allergy Rash/Hives Verified 07/30/21 16:59 Physical Exam Vitals: Vital Signs Temp Pulse Resp BP Pulse Ox 07/31/21 08:22 64 18 146/79 100 07/31/21 06:32 84 18 124/70 100 07/30/21 23:59 58 L 18 143/82 98 07/30/21 20:34 71 18 142/79 98 07/30/21 13:50 98.1 F 70 16 149/86 99 Intake and Output 07/30/21 07/31/21 07/31/21 22:59 06:59 14:59 Intake Total 75.863 Balance 75.863 Intake: Intake, IV Titration 75.863 Amount Heparin Sod,Pork in 0.45% 75.863 NaCl 25,000 unit In 0.45 % NaCl 1 250ml.bag @ 18 UNITS/KG/HR 12.574 mls/hr IV .[id number] [facility] Rx#: [id number] PHYSICAL EXAMINATION: Patient is lying in the bed comfortably, no acute distress, awake alert and oriented.. HEENT: Normocephalic. Neck is supple. Pupils reactive. Nostrils clear. Oral cavity is moist. Neck reveals no JVD, carotid bruits, or thyromegaly. CHEST EXAMINATION: Trachea is central. Symmetrical expansion. Lung medrano clear to auscultation and percussion. CARDIAC: Normal S1, S2 with no gallops. No murmurs ABDOMEN: Soft. Bowel sounds normal. No organomegaly. No abdominal bruits. Extremities: reveal no edema. No clubbing or cyanosis. Right upper extremity swelling up to the axillary region. Neurologically awake, alert, oriented x3 with well-coordinated movements. No focal deficits noted Skin: No rash or skin lesions. Psychiatric: Coperative. Nonsuicidal Musculoskeletal: No joint swelling or deformity. Normal range of motion. Results CBC & Chem 7: 07/31/21 08:08 07/30/21 16:35 Labs: Abnormal Lab Results - Last 24 Hours (Table) 07/30/21 07/30/21 07/30/21 Range/Units 16:35 16:35 18:03 RBC 3.66 L (3.80-5.40) m/uL Hgb 10.6 L (11.4-16.0) gm/dL Hct 33.9 L (34.0-46.0) % MCHC (31.0-37.0) g/dL RDW 17.0 H (11.5-15.5) % APTT 18.0 L (22.0-30.0) sec Chloride 108 H (98-107) mmol/L Glucose 100 H (74-99) mg/dL 07/31/21 07/31/21 Range/Units 00:22 08:08 RBC 3.52 L (3.80-5.40) m/uL Hgb 9.9 L (11.4-16.0) gm/dL Hct 33.0 L (34.0-46.0) % MCHC 30.1 L (31.0-37.0) g/dL RDW 16.3 H (11.5-15.5) % APTT 67.3 H (22.0-30.0) sec Chloride (98-107) mmol/L Glucose (74-99) mg/dL Thrombosis Risk Factor Assmnt - DVT/VTE Prophylaxis DVT/VTE Prophylaxis: Pharmacologic Prophylaxis ordered Assessment and Plan Assessment: Acute right upper extremity DVT. Unprovoked. Bilateral pulmonary emboli without right ventricular strain. Asthma Anxiety/depression History of migraine headaches Currently everyday smoker and occasional marijuana use DVT prophylaxis patient is already heparin drip Plan: Patient will be continued on heparin drip. 2D echocardiogram showed no evidence of right ventricular strain. Bilateral lower extremity duplex, was ordered to rule out DVT in the lower extremities. Vascular surgery is on board. No surgical intervention recommended at this time. Patient was counseled extensively for smoking cessation. Due to unprovoked DVT patient will need hypercoagulability work-up as an outpatient and also magnesium work-up. Time with Patient: Greater than 30
[2021-07-31] MEDS: APIXABAN 5 MG TAB PO SCH ×2 (15:12→21:49)
[2021-07-31] MEDS: HEPARIN SOD,PORK IN 0.45% NACL 25,000 UNIT in 0.45% NACL 1 250ML.BAG IV SCH (17:38)
--- NOTE | 2021-07-31 18:25 | US ---
EXAMINATION TYPE: US venous doppler duplex LE DATE OF EXAM: 07/31/2021 10:22 AM COMPARISON: NONE CLINICAL HISTORY: 45-year-old female PE, RUE DVT. PE SIDE PERFORMED: Bilateral TECHNIQUE: The lower extremity deep venous system is examined utilizing real time linear array sonog latosha with graded compression, doppler sonography and color-flow sonography. FINDINGS: VESSELS IMAGED: Common Femoral Vein Deep Femoral Vein Greater Saphenous Vein * Femoral Vein Popliteal Vein Small Saphenous Vein * Proximal Calf Veins (* superficial vessels) Right Leg: Negative for DVT Left Leg: Negative for DVT IMPRESSION: No evidence for DVT within the bilateral lower extremities imaged from the groin to the upper calves.
[2021-08-01] MEDS: HYDROmorphone 1 MG/ML 1 ML SYRINGE IVP PRN ×2 (02:09→06:29)
[2021-08-01 06:11] LABS: Glucose,Whole Blood 106 mg/dL (75-99)
[2021-08-01 08:18] LABS: Anisocytosis Slight; Basophils # (A) 0.1 k/uL (0-0.2); Basophils % (A) 1 %; Eosinophils # (A) 0.3 k/uL (0-0.7); Eosinophils % (A) 3 %; HCT 31.9 % (34.0-46.0); HGB 10.4 gm/dL (11.4-16.0); Hypochromasia Slight; Lymphocytes % (A) 25 %; MCH 30.6 pg (25.0-35.0); MCHC 32.7 g/dL (31.0-37.0); MCV 93.6 fL (80.0-100.0); Monocytes # (A) 0.5 k/uL (0-1.0); Monocytes % (A) 6 %; Neutrophils % (A) 63 %; Platelet Count 291 k/uL (150-450); RBC 3.41 m/uL (3.80-5.40); RDW 16.3 % (11.5-15.5); WBC 7.9 k/uL (3.8-10.6)
[2021-08-01 08:44] VITALS: RESP 17
[2021-08-01 08:51] LABS: African American GFR (CKD) >90 (>60 ml/min/1.73 sqM); Anion Gap 5 mmol/L; Blood Urea Nitrogen 12 mg/dL (7-17); Calcium 8.3 mg/dL (8.4-10.2); Carbon Dioxide 22 mmol/L (22-30); Chloride 108 mmol/L (98-107); Glucose 92 mg/dL (74-99); Non-African American GFR(CKD) >90 (>60 ml/min/1.73 sqM); Potassium 4.4 mmol/L (3.5-5.1); Sodium 135 mmol/L (137-145)
[2021-08-01] MEDS: lisinopriL 5 MG TAB PO SCH (09:04)
[2021-08-01] MEDS: APIXABAN 5 MG TAB PO SCH (09:04)
[2021-08-01] MEDS: NICOTINE 14MG/24HR PATCH TRANSDERM SCH (09:05)
[2021-08-01] MEDS: HEPARIN SOD,PORK IN 0.45% NACL 25,000 UNIT in 0.45% NACL 1 250ML.BAG IV SCH (09:05)
[2021-08-01] MEDS ORDERED: HYDROcodone/APAP 5-325MG 1 EACH TAB PO PRN (10:23)
[2021-08-01 11:56] VITALS: BP 95/62; PULSE 65; TEMP 98.2
--- NOTE | 2021-08-01 14:49 | P.PN ---
Subjective Progress Note Date: 08/01/21 Principal diagnosis: Pulmonary embolism, right upper extremity DVT Patient was seen and examined is a follow-up for pulmonary embolism and right upper extremity DVT. She currently has her Rolf wrap on her upper extremity as she states it would not stay on. Patient ended up staying overnight due to pain management. She states she has no shortness of breath. Pain in her right upper extremity has improved some. Heparin has been discontinued and she has been started on Eliquis. Objective - Vital Signs Vital signs: Vital Signs Temp 98.2 F 08/01/21 03:41 Pulse 73 08/01/21 03:41 Resp 18 08/01/21 03:41 BP 116/76 08/01/21 03:41 Pulse Ox 96 08/01/21 03:41 Intake & Output 07/31/21 08/01/21 08/01/21 18:59 06:59 18:59 Intake Total 323.447 240 Balance 323.447 240 Weight 69.853 kg Intake: Intake, IV Titration 83.447 Amount Heparin Sod,Pork in 0.45% 83.447 NaCl 25,000 unit In 0.45 % NaCl 1 250ml.bag @ 18 UNITS/KG/HR 12.574 mls/hr IV .[id number] [facility] Rx#: [id number] Oral 240 240 Other: # Voids 2 - Exam General appearance: The patient is alert, oriented, appears in no acute distress. HET: Head is normocephalic and atraumatic. Pupils are equal and reactive. Neck: Supple without lymphadenopathy. Trachea midline. No audible carotid bruit. Heart: S1 S2. Regular rate and rhythm. Lungs: Clear to auscultation bilaterally. Abdomen: Soft, nontender, nondistended. Extremities: Normal skin color and turgor. Right upper extremity with minimal swelling near axilla. Palpable radial and ulnar pulse. Full range of motion. Neurological: No focal deficits. Strength and sensation are grossly intact. - Labs CBC & Chem 7: 08/01/21 06:10 08/01/21 06:10 Labs: Abnormal Lab Results - Last 24 Hours (Table) 07/31/21 07/31/21 08/01/21 Range/Units 08:08 08:08 06:09 RBC 3.52 L (3.80-5.40) m/uL Hgb 9.9 L (11.4-16.0) gm/dL Hct 33.0 L (34.0-46.0) % MCHC 30.1 L (31.0-37.0) g/dL RDW 16.3 H (11.5-15.5) % APTT 47.9 H (22.0-30.0) sec POC Glucose (mg/dL) 106 H (75-99) mg/dL 08/01/21 Range/Units 06:10 RBC 3.41 L (3.80-5.40) m/uL Hgb 10.4 L (11.4-16.0) gm/dL Hct 31.9 L (34.0-46.0) % MCHC (31.0-37.0) g/dL RDW 16.3 H (11.5-15.5) % APTT (22.0-30.0) sec POC Glucose (mg/dL) (75-99) mg/dL Assessment and Plan Assessment: 1. Bilateral pulmonary emboli without evidence of right heart strain 2. Right upper extremity DVT 3. Current smoker Plan: 1. Continue Eliquis starter pack 2. Await echocardiogram 3. Bilateral lower extremity venous duplex ordered 4. Tobacco cessation 5. No plans for vascular surgical intervention at this time. Echocardiogram with no evidence of right heart strain. Patient is cleared for discharge from vascular surgery follow-up in one month Thank you for this consultation. The above dictated assessment and findings were discussed with Dr. Bhandari. The impression and plan of care have been directed as dictated.
--- NOTE | 2021-08-01 15:01 | P.DS ---
Providers Date of admission: 07/30/21 20:12 Expected date of discharge: 08/01/21 Attending physician: Jesus Manuel May Consults: 07/30/21 19:19 Consult Physician Urgent Consulting Provider: Percy Ingram Consult Reason/Comments: PE and DVT Do you want consulting provider notified?: Yes Primary care physician: Zafar Melo Hospital Course: Final diagnosis Acute right upper extremity DVT. Unprovoked. Bilateral pulmonary emboli without right ventricular strain. Asthma Anxiety/depression History of migraine headaches Currently everyday smoker and occasional marijuana use GI prophylaxis DVT prophylaxis Full code Discharge disposition Patient is being discharged in a stable condition with guarded prognosis to home. Patient will follow-up with Dr. Melo in the outpatient setting upon discharge. Patient is to follow-up with hematology and vascular surgery outpatient as scheduled. She will continue on Eliquis 10 mg twice daily for 1 week and then titrate down to 5 mg twice daily thereafter. Total time taken is greater than 35 minutes. Hospital course This is a 45-year-old female who was recently admitted with right upper extremity swelling with worsening pain and progression that radiate to the arm and neck and patient underwent upper extremity duplex showing extensive acute DVT in the brachial vein extending to the right axillary vein into the mid as pect of the subclavian vein and CT angio showed scattered pulmonary emboli with the possibility of right heart strain. Patient was evaluated by vascular surgery and no right heart strain noted and patient was placed on IV heparin and is now transitioned to oral anticoagulant. Patient was given a coupon for 1 month free and currently has no insurance and case management provided paperwork to apply for Medicaid as patient will need follow-up with vascular surgery and her primary care provider along with hematology in the outpatient setting. Patient reports to smoking daily and reports she will be quitting as of now. Offered smoking cessation and patches and patient refused. Patient continues with some right axilla pain and discomfort and encourage the patient to elevate and also Rolf wrap as tolerated. Currently no reports of chest pain, shortness of breath, or palpitations. Patient is afebrile. No reports of nausea or vomiting and patient is tolerating diet. Patient will be discharged home today. Physical exam: Gen: This is a 45-year-old female awake, alert and oriented 3, well-developed, well-nourished. HEENT: Head is atraumatic, normocephalic. Pupils equal, round. Sclerae is anicteric. NECK: Supple. No JVD. No lymphadenopathy. No thyromegaly. LUNGS: Clear to auscultation. No wheezes or rhonchi. No intercostal retractions. HEART: Regular rate and rhythm. No murmur. ABDOMEN: Soft. Bowel sounds are present. No masses. No tenderness. EXTREMITIES: No pedal edema. No calf tenderness. NEUROLOGICAL: Patient is awake, alert and oriented x3. Cranial nerves 2 through 12 are grossly intact. Please refer to medication reconciliation sheet for a list of medications. The impression and plan of care has been dictated by Lexy Adam, Nurse Practitioner as directed. Dr. Leo MD I have performed a history and examination and MDM of this patient, discussed the same with the dictator, and agree with the dictator's assessment and plan as written ,documented as a scribe. Based on total visit time, I have performed more than 50% of the visit. Patient Condition at Discharge: Stable Plan - Discharge Summary Discharge Rx Participant: No New Discharge Prescriptions: New Apixaban [Eliquis Starter Pack (for VTE)] 5 - 10 mg PO DIRECTED 30 Days #1 each HYDROcodone/APAP 5-325MG [[place] 5-325] 1 each PO Q4HR PRN #12 tab PRN Reason: Pain Acetaminophen Tab [Tylenol] 650 mg PO Q6HR PRN tab PRN Reason: Mild Pain Or Fever > 100.5 Discharge Medication List Apixaban [Eliquis Starter Pack (for VTE)] 5 - 10 mg PO DIRECTED 30 Days #1 each 07/31/21 [Rx] Acetaminophen Tab [Tylenol] 650 mg PO Q6HR PRN tab 08/01/21 [Rx] HYDROcodone/APAP 5-325MG [[place] 5-325] 1 each PO Q4HR PRN #12 tab 08/01/21 [Rx] Follow up Appointment(s)/Referral(s): Forrest Corona MD [STAFF PHYSICIAN] - 2 Weeks (office will call you with appt. time) Percy Ingram DO [STAFF PHYSICIAN] - 1 Week Zafar Melo MD [Primary Care Provider] - 1-2 days ( please call for appt. time, office is currently closed ) Patient Instructions/Handouts: Apixaban (By mouth), Pulmonary Embolism (DC), Deep Vein Thrombosis (DC) Activity/Diet/Wound Care/Special Instructions: Activity Limited until follow-up Follow-up with primary care provider on discharge Follow-up with hematology outpatient in the next 2 weeks Continue taking Eliquis 10 mg twice daily for the next 6 days and then titrate the dose down to 5 mg twice daily thereafter Fill out insurance application to obtain insurance Continue to avoid smoking Discharge Disposition: HOME SELF-CARE
[2021-08-01 16:59] LABS: Iron 14 ug/dL (50-170); Total Iron Binding Capacity 321 ug/dL (228-460)
== END 2021-08-01 14:12 | disposition home or self-care (01) | DRG 176 ==
LOC: EC 12:48 → 3SCARD 20:12
PROVIDERS: ADMIT Internal Medicine; ATTEND Internal Medicine
DX: I26.99 Other pulmonary embolism without acute cor pulmonale (principal); I82.A13 Acute embolism and thrombosis of axillary vein, bilateral; I82.622 Acute embolism and thrombosis of deep veins of left upper extremity; I82.890 Acute embolism and thrombosis of other specified veins; I83.90 Asymptomatic varicose veins of unspecified lower extremity; I07.1 Rheumatic tricuspid insufficiency; J45.909 Unspecified asthma, uncomplicated; R00.0 Tachycardia, unspecified; R00.2 Palpitations; G43.909 Migraine, unspecified, not intractable, without status migrainosus; G40.909 Epilepsy, unspecified, not intractable, without status epilepticus; F41.9 Anxiety disorder, unspecified; F32.A Depression, unspecified; F17.210 Nicotine dependence, cigarettes, uncomplicated; Z86.711 Personal history of pulmonary embolism; Z86.718 Personal history of other venous thrombosis and embolism; Z88.0 Allergy status to penicillin; Z88.1 Allergy status to other antibiotic agents; Z71.6 Tobacco abuse counseling; Z90.49 Acquired absence of other specified parts of digestive tract
CPT/HCPCS: 36415; 71275; 80048; 80053; 83540; 83550; 83880; 84484; 85025; 85610; 85730; 93005; 93306; 93970; 96374; 96375; 96376; 99291

== ENCOUNTER 2021-08-04 10:55 | Emergency (ER) | payer BC, OTHER ==
[2021-08-04] MEDS ORDERED: FAMOTIDINE 20 MG/2 ML VIAL IV STA (11:16)
[2021-08-04] MEDS ORDERED: diphenhydrAMINE 50 MG/ML 1 ML VIAL IVP STA (11:16)
[2021-08-04] MEDS ORDERED: methylPREDNISolone SOD SUCCI 125 MG/2 ML VIAL IV STA (11:16)
[2021-08-04 12:04] VITALS: RESP 18
[2021-08-04 12:08] LABS: ALT 17 U/L (4-34); AST 14 U/L (14-36); African American GFR (CKD) >90 (>60 ml/min/1.73 sqM); Albumin 4.2 g/dL (3.5-5.0); Alkaline Phosphatase 95 U/L (38-126); Anion Gap 8 mmol/L; Basophils # (A) 0.1 k/uL (0-0.2); Basophils % (A) 1 %; Blood Urea Nitrogen 13 mg/dL (7-17); Calcium 9.2 mg/dL (8.4-10.2); Carbon Dioxide 24 mmol/L (22-30); Chloride 107 mmol/L (98-107); Eosinophils # (A) 0.2 k/uL (0-0.7); Eosinophils % (A) 3 %; Glucose 106 mg/dL (74-99); HGB 11.9 gm/dL (11.4-16.0); Hypochromasia Slight; Lymphocytes # (A) 1.6 k/uL (1.0-4.8); Lymphocytes % (A) 20 %; MCH 28.2 pg (25.0-35.0); MCHC 31.3 g/dL (31.0-37.0); MCV 90.3 fL (80.0-100.0); Mean Platelet Volume 8.6; Monocytes # (A) 0.4 k/uL (0-1.0); Monocytes % (A) 4 %; Neutrophils # (A) 5.7 k/uL (1.3-7.7); Neutrophils % (A) 71 %; Non-African American GFR(CKD) >90 (>60 ml/min/1.73 sqM); Platelet Count 424 k/uL (150-450); Potassium 4.4 mmol/L (3.5-5.1); RBC 4.21 m/uL (3.80-5.40); RDW 15.9 % (11.5-15.5); Sodium 139 mmol/L (137-145); Total Bilirubin 0.3 mg/dL (0.2-1.3); Total Protein 7.2 g/dL (6.3-8.2)
--- NOTE | 2021-08-04 12:09 | ED ---
General Adult HPI - General Chief complaint: Allergic Reaction Stated complaint: Med Allergic reaction Time Seen by Provider: 08/04/21 11:12 Source: patient Mode of arrival: ambulatory Limitations: no limitations - History of Present Illness Initial comments: Patient is a 45-year-old female presenting with chief complaint of ALLERGIC reaction. Patient states that she was recently started on Eliquis for DVT/PE, she states that she has routinely been experiencing hives and itching in multiple areas soon after taking the eliquis. Symptoms are responsive to Benadryl. Patient denies any shortness of breath, dysphasia, swelling of the lips or tongue, wheezing. Denies any chest pain, fever, chills, nausea, vomiting, abdominal pain, palpitations, weakness, headache, hearing or vision changes, numbness or tingling, or any other new medications, foods, products. - Related Data Previous Rx's Medication Instructions Recorded Apixaban [Eliquis Starter Pack 5 - 10 mg PO DIRECTED 30 Days 07/31/21 (for VTE)] #1 each Acetaminophen Tab [Tylenol] 650 mg PO Q6HR PRN tab 08/01/21 HYDROcodone/APAP 5-325MG [[place] 1 each PO Q4HR PRN #12 tab 08/01/21 5-325] Rivaroxaban [Xarelto] 20 mg PO HS 30 Days #30 tab 08/04/21 Allergies Allergy/AdvReac Type Severity Reaction Status Date / Time ofloxacin [From Floxin] Allergy Rash/Hives Verified 08/04/21 11:04 Penicillins Allergy Rash/Hives Verified 08/04/21 11:04 Review of Systems ROS Statement: Those systems with pertinent positive or pertinent negative responses have been documented in the HPI. ROS Other: All systems not noted in ROS Statement are negative. Past Medical History Past Medical History: Asthma, Deep Vein Thrombosis (DVT), Musculoskeletal Disorder, Pulmonary Embolus (PE), Seizure Disorder Additional Past Medical History / Comment(s): Migraines, low back pain, cervical pain, last seizure 15-20 years ago, duodenitis, gastritis, hemorrhoids. History of Any Multi-Drug Resistant Organisms: None Reported Past Surgical History: Appendectomy, Cholecystectomy, Tonsillectomy, Tubal Ligation Additional Past Surgical History / Comment(s): Nasal surgery, L leg surgery for varicose vein, EGD, colonoscopy Past Anesthesia/Blood Transfusion Reactions: No Reported Reaction Past Psychological History: Anxiety, Depression Smoking Status: Current every day smoker - Past Family History Father Family Medical History: Diabetes Mellitus, Hyperlipidemia Additional Family Medical History / Comment(s): Heart problems. Mother Family Medical History: Diabetes Mellitus Additional Family Medical History / Comment(s): MEN1 genetic abnormality/pancreas issues and kidney stones. General Exam Limitations: no limitations General appearance: alert, in no apparent distress Head exam: Present: atraumatic, normocephalic, normal inspection Eye exam: Present: normal appearance, EOMI. Absent: scleral icterus Neck exam: Present: normal inspection Respiratory exam: Present: normal lung sounds bilaterally. Absent: respiratory distress, wheezes, rales, rhonchi, stridor Cardiovascular Exam: Present: regular rate, normal rhythm, normal heart sounds. Absent: systolic murmur, diastolic murmur, rubs, gallop, clicks Neurological exam: Present: alert, oriented X3, CN II-XII intact Psychiatric exam: Present: normal affect, normal mood Skin exam: Present: warm, dry, intact, normal color. Absent: rash Course Vital Signs 08/04/21 08/04/21 08/04/21 11:04 11:37 14:31 Temperature 98.2 F 97.4 F L Pulse Rate 88 62 65 Respiratory 16 18 18 Rate Blood Pressure 161/86 138/77 118/77 O2 Sat by Pulse 98 100 98 Oximetry Medical Decision Making - Medical Decision Making Patient is a 45-year-old female presenting with ALLERGIC reaction. Patient states that she was recently started on eliquis for DVT and PE. She has noted that she has been breaking out in hives and severely itching after taking the medication. She states she has had no other new medications, foods, products. She denies any dysphasia, shortness of breath, sensation of swelling of the throat. On examination lungs are clear to auscultation, no wheezing. No signs of angioedema. Patient states that she is currently itching that her hives have resolved. Patient was given Benadryl and Solu-Medrol here in the ER, which helped to significantly reduce her itching. I spoke with Dr. Bailey, as his group follow the patient during her inpatient stay and sent her home on eliquis. He advised replacing with xarelto 20 mg once a night and providing a 30 day supply. Patient does not have insurance, was able to provide her with a coupon for a 30 day for a supply. Patient appears stable for discharge with outpatient follow-up at this time. Follow-up with PCP on Friday. Report back to ER if any worsening symptoms. I discussed return parameters and alarm symptoms. Answered all questions. Patient conveyed verbal understanding and agreed to the plan. I discussed this case with my attending Dr. Hoffman. - Lab Data Result diagrams: 08/04/21 11:25 08/04/21 11:25 Lab Results 08/04/21 08/04/21 Range/Units 11:25 11:25 WBC 8.0 (3.8-10.6) k/uL RBC 4.21 (3.80-5.40) m/uL Hgb 11.9 (11.4-16.0) gm/dL Hct 38.0 (34.0-46.0) % MCV 90.3 (80.0-100.0) fL MCH 28.2 (25.0-35.0) pg MCHC 31.3 (31.0-37.0) g/dL RDW 15.9 H (11.5-15.5) % Plt Count 424 (150-450) k/uL MPV 8.6 Neutrophils % 71 % Lymphocytes % 20 % Monocytes % 4 % Eosinophils % 3 % Basophils % 1 % Neutrophils # 5.7 (1.3-7.7) k/uL Lymphocytes # 1.6 (1.0-4.8) k/uL Monocytes # 0.4 (0-1.0) k/uL Eosinophils # 0.2 (0-0.7) k/uL Basophils # 0.1 (0-0.2) k/uL Hypochromasia Slight Sodium 139 (137-145) mmol/L Potassium 4.4 (3.5-5.1) mmol/L Chloride 107 (98-107) mmol/L Carbon Dioxide 24 (22-30) mmol/L Anion Gap 8 mmol/L BUN 13 (7-17) mg/dL Creatinine 0.71 (0.52-1.04) mg/dL Est GFR (CKD-EPI)AfAm >90 (>60 ml/min/1.73 sqM) Est GFR (CKD-EPI)NonAf >90 (>60 ml/min/1.73 sqM) Glucose 106 H (74-99) mg/dL Calcium 9.2 (8.4-10.2) mg/dL Total Bilirubin 0.3 (0.2-1.3) mg/dL AST 14 (14-36) U/L ALT 17 (4-34) U/L Alkaline Phosphatase 95 (38-126) U/L Total Protein 7.2 (6.3-8.2) g/dL Albumin 4.2 (3.5-5.0) g/dL Disposition Clinical Impression: Allergic reaction to drug Disposition: HOME SELF-CARE Condition: Good Instructions (If sedation given, give patient instructions): Urticaria (ED), Anaphylaxis (ED), General Allergic Reaction (ED) Additional Instructions: Report back to ER if any worsening symptoms. Follow-up with PCP 1-2 days. Prescriptions: Rivaroxaban [Xarelto] 20 mg PO HS 30 Days #30 tab Is patient prescribed a controlled substance at d/c from ED?: No Referrals: Zafar Melo MD [Primary Care Provider] - 1-2 days Time of Disposition: 14:09
[2021-08-04 14:32] VITALS: BP 118/77; PULSE 65; TEMP 97.4
== END 2021-08-04 14:34 | disposition home or self-care (01) ==
LOC: EC 10:55
DX: T78.49XA Other allergy, initial encounter (principal); J44.9 Chronic obstructive pulmonary disease, unspecified; F17.200 Nicotine dependence, unspecified, uncomplicated; Z88.1 Allergy status to other antibiotic agents; Z88.0 Allergy status to penicillin
CPT/HCPCS: 99284; 96374; 96375; 36415; 80053; 85025; J1200; J2930

== ENCOUNTER → 2021-10-15 | Outpatient (CLI) | payer OTHER ==
--- NOTE | 2021-10-15 20:08 | CT ---
EXAMINATION TYPE: CT abdomen pelvis w con CT DLP: 876.3 mGycm, Automated exposure control for dose reduction was used. DATE OF EXAM: 10/15/2021 7:21 PM COMPARISON: CT abdomen pelvis most recent from 01/04/2018 CLINICAL INDICATION:Female, 46 years old with history of R10.9 UNSPECIFIED ABDOMINAL PAIN; UNSPECIFIE D ABDOMINAL PAIN TECHNIQUE: Axial CT of the abdomen and pelvis. Sagittal and coronal reformats were created on a [id number] workstation. Contrast used:100ml mL of Isovue 300 with IV Contrast, Oral contrast used: with Oral Contrast FINDINGS: LOWER CHEST: Unremarkable ABDOMEN LIVER: Diffusely hypoattenuating parenchyma. GALLBLADDER AND BILE DUCTS: Gallbladder is surgically absent with mild extra hepatic biliary dilatati on likely physiologic and a postcholecystectomy change. No evidence of choledocholithiasis. PANCREAS: Unremarkable. SPLEEN: Unremarkable. ADRENAL GLANDS: Unremarkable. KIDNEYS AND URETERS: No evidence of hydronephrosis. There is an nonobstructing left renal calculus me asuring 5 mm. There are 2 right indeterminate renal lesions measuring 29 and 27 Hounsfield units supe riorly and inferiorly respectively. These both measure 2.0 cm each. These were previously less than 2 0 Hounsfield units on prior and likely represent proteinaceous/hemorrhagic contents on today's exam. Subcentimeter probable left renal cyst. PELVIS BLADDER: Unremarkable REPRODUCTIVE: Unremarkable. ABDOMEN & PELVIS STOMACH AND BOWEL: No evidence of bowel obstruction. PERITONEUM: No evidence of pneumoperitoneum or free fluid. VASCULATURE: No evidence of aortic aneurysm. MUSCULOSKELETAL: No acute osseous abnormalities. There is multilevel disc degeneration changes most p ronounced at L5-S1. Facet joint arthropathy at L5-S1 is also present with right pars interarticularis defect. LYMPH NODES: No gross evidence for lymphadenopathy. SOFT TISSUE/ABDOMINAL WALL: Fat filled umbilical hernia measuring 0.7 cm at the neck. IMPRESSION: 1. No evidence for acute intra-abdominal process. 2. Nonobstructing left renal calculi. 3. Hepatic steatosis. 4. Small fat-containing umbilical hernia. 5. L5-S1 right pars interarticularis defect. There is associated degeneration changes throughout the spine worse at this level.
== END | disposition home or self-care (01) ==
LOC: RADCTMAIN 16:53
PROVIDERS: ATTEND Internal Medicine Hematology & Oncology
DX: N20.0 Calculus of kidney (principal); K76.0 Fatty (change of) liver, not elsewhere classified; K42.9 Umbilical hernia without obstruction or gangrene
CPT/HCPCS: 74177; Q9967

== ENCOUNTER → 2021-11-23 | Outpatient (CLI) | payer OTHER ==
--- NOTE | 2021-11-23 22:29 | CT ---
EXAMINATION TYPE: CT angio chest DATE OF EXAM: 11/23/2021 COMPARISON: CTA chest July 30, 2021 HISTORY: h/o blood clot in July 2021, recheck CT DLP: 612 mGycm. Automated Exposure Control for Dose Reduction was Utilized. CONTRAST: CTA scan of the thorax is performed with IV Contrast, patient injected with 100 mL of Isovue 370, pul monary embolism protocol. MIP Images are created on CT scanner and reviewed. FINDINGS: LUNGS: The lungs remain grossly clear, there is no concerning parenchymal mass or nodule identified. There is no pleural effusion or pneumothorax seen. The tracheobronchial tree is patent. MEDIASTINUM: Suboptimal study with most dense contrast in the SVC. There is greater density contrast in the aorta versus pulmonary arteries on current exam. No thoracic aortic aneurysm or dissection. N o large saddle central pulmonary embolism. Cannot exclude smaller lobar or segmental pulmonary emboli sm on this exam. There are no greater than 1 cm hilar or mediastinal lymph nodes. No cardiomegaly o r pericardial effusion is seen. OTHER: Cholecystectomy clips are redemonstrated. Mild to moderate spurring and disc space narrowing a t T9-T10 level is noted. There is persistent 5 mm calculus mid pole level left kidney coronal image 2 8. IMPRESSION: Markedly suboptimal study without central saddle pulmonary embolism. Cannot evaluate the smaller vessels where there was prior pulmonary embolism. No acute pulmonary process.
== END | disposition home or self-care (01) ==
LOC: RADCTMAIN 15:03
PROVIDERS: ATTEND Internal Medicine Hematology & Oncology
DX: I26.99 Other pulmonary embolism without acute cor pulmonale (principal)
CPT/HCPCS: 71275; Q9967

== ENCOUNTER 2022-09-06 10:20 | Day surgery (SDC) | payer OTHER ==
[~2022-09-06 10:20] MED LIST changes: +LACTATED RINGERS 1,000 ML IV SCH; -LIDOCAINE 1% 20 ML VIAL (10MG/ML) FOR IV START INTRADERMA PRN
[2022-09-06 10:51] VITALS: TEMP 97.6
[2022-09-06] MEDS ORDERED: PROPOFOL 10 MG/ML 20 ML VIAL IV ONE (12:08)
[2022-09-06] MEDS ORDERED: LIDOCAINE 2% INJ 20 MG/ML (2 ML VIAL) ONE (12:08)
--- NOTE | 2022-09-06 12:26 | P.PCN ---
Date of Procedure: 09/06/22 Procedure(s) Performed: BRIEF HISTORY: Patient is a 47-year-old pleasant white female scheduled for an elective colonoscopy as a part of evaluation of lower abdominal pain and chronic diarrhea for the last 6 months duration. PROCEDURE PERFORMED: Colonoscopy with random biopsies. PREOPERATIVE DIAGNOSIS: Lower abdominal pain and chronic diarrhea of 6 months duration. IV sedation per Anesthesia. PROCEDURE: After informed consent was obtained, the patient, was brought into the endoscopy unit. IV sedation was administered by Anesthesia under continuous monitoring. Digital rectal examination was normal. Initially the Olympus CF-160 flexible video c pediatric colonoscope was then inserted in the rectum, gradually advanced into the cecum without any difficulty. Careful examination was performed as the scope was gradually being withdrawn. Ileocecal valve and the appendiceal orifice were visualized and appeared normal. Prep was excellent. Terminal ileum was intubated and 20 cm visualized and appeared normal. Mucosa of the cecum, ascending colon, transverse colon, descending colon, sigmoid colon, and rectum appeared normal. Random biopsies were done from ascending and descending colon to rule out microscopic/collagenous colitis. Retroflexion was performed in the rectum and no lesions were seen. The patient tolerated the procedure well. IMPRESSION: Normal-appearing colon from rectum to cecum . RECOMMENDATIONS: Findings of this examination were discussed with the patient as well as a family. She was advised to follow up in office in one to 2 weeks. In the meantime she'll continue Bentyl 10 mg 3 times daily..
[2022-09-06 12:51] VITALS: BP 136/93; PULSE 68; RESP 15
== END 2022-09-06 13:25 | disposition home or self-care (01) ==
LOC: ORWHC2ENDO 10:20
PROVIDERS: ATTEND Internal Medicine Gastroenterology
DX: K52.9 Noninfective gastroenteritis and colitis, unspecified (principal); J45.909 Unspecified asthma, uncomplicated; K21.9 Gastro-esophageal reflux disease without esophagitis; G40.909 Epilepsy, unspecified, not intractable, without status epilepticus; K76.0 Fatty (change of) liver, not elsewhere classified; N20.0 Calculus of kidney; Z88.0 Allergy status to penicillin; Z88.6 Allergy status to analgesic agent; Z88.8 Allergy status to other drugs, medicaments and biological substances
CPT/HCPCS: 81025; 88305; 84703; 45380; J2704; J2001

== ENCOUNTER → 2022-09-12 | Outpatient (CLI) | payer OTHER ==
--- NOTE | 2022-09-12 11:14 | US ---
EXAMINATION TYPE: Transabdominal DATE OF EXAM: 09/12/2022 10:51 AM COMPARISON: NONE CLINICAL INDICATION: Female, 47 years old with history of R10.32 LEFT LOW QUAD PAIN; Patient states s he has had positive tests, she was in our ER 09/06/22 and HCG was not detected, history of u terine ablation and tubal ligation. EXAM PERFORMED: Transvaginal (TV) and Transabdominal (TA) EXAM MEASUREMENTS: GESTATIONAL AGE / DATING Physician Established: Not yet established Dates by LMP: LMP unknown Dates by First Scan: No previous this is first scan Dates by Current Scan for: No IUP seen at this time MATERNAL ANATOMY Uterus: 7.6 x 3.8 x 4.5cm Right Ovary: 2.4 x 1.6 x 2.4cm Left Ovary: 2.2 x 1.3 x 1.5cm Post CDS / Adnexa: wnl Presence of free fluid: no Presence of corpus luteal cyst: ? right ovary - 1.7 x 1.1 x 1.2cm Presence of subchorionic bleed: no GESTATION / SURVEY IUP: No IUP seen at this time Date of LMP: Unknown Beta HcG (if available): 09/06/22 - not detected No evidence of intrauterine gestational sac, yolk sac, pole. Endometrium is normal thickness me asuring 0.5 cm. Questionable corpus luteal cyst within the right ovary measuring up to 1.7 cm. IMPRESSION: No evidence of intrauterine gestational sac. This can be seen in early , ectopic a nd spontaneous depending on beta hCG. Follow-up ultrasound can be performed in 5-7 days if t here is a positive beta-hCG.
== END | disposition home or self-care (01) ==
LOC: RADUSWWP 10:12
PROVIDERS: ATTEND Family Medicine
DX: O00.80 Other ectopic pregnancy without intrauterine pregnancy (principal); Z3A.00 Weeks of gestation of pregnancy not specified
CPT/HCPCS: 76801; 76817

== ENCOUNTER 2023-04-01 12:57 | Emergency (ER) | payer OTHER ==
[2023-04-01] MEDS ORDERED: SODIUM CHLORIDE 0.9% 1,000 ML IV STA (13:25)
[2023-04-01] MEDS ORDERED: ONDANSETRON 4 MG/2 ML VIAL IVP STA (13:25)
[2023-04-01] MEDS ORDERED: KETOROLAC 15 MG/ML 1 ML VIAL IVP STA (13:25)
--- NOTE | 2023-04-01 13:38 | ED ---
Abdominal Pain HPI - General Chief Complaint: Abdominal Pain Stated Complaint: Fall- Abd Pain-on blood thinners Time Seen by Provider: 04/01/23 13:15 Source: patient, RN notes reviewed Mode of arrival: ambulatory Limitations: no limitations - History of Present Illness Initial Comments: This is a 47-year-old female who presents to the emergency department for abdominal pain. States that about 5 days ago she slipped on ice and fell on her left side. 2-3 days ago, she started to develop lower abdominal pain that seems to be worse on the left side. She is on Xarelto due to a previous pulmonary embolus and residual DVTs in the right upper extremity. She is unsure if she sustained an internal injury from the fall or she is experiencing a flare up of colitis, which she reports a history of. She has associated nausea and vomiting. Denies any fevers or chills. Denies any changes in bowel/bladder habits. MD Complaint: abdominal pain - Related Data Home Medications Medication Instructions Recorded Confirmed Dicyclomine [Bentyl] 20 mg PO QID PRN 04/01/23 04/01/23 Previous Rx's Medication Instructions Recorded Rivaroxaban [Xarelto] 20 mg PO HS 30 Days #30 tab 08/04/21 Ketorolac [Toradol] 10 mg PO Q6HR PRN #15 tab 04/01/23 Ondansetron Odt [Zofran Odt] 4 mg PO Q8HR PRN #15 tab 04/01/23 Allergies Allergy/AdvReac Type Severity Reaction Status Date / Time apixaban [From Eliquis] Allergy Rash/Hives Verified 04/01/23 14:50 ofloxacin [From Floxin] Allergy Rash/Hives Verified 04/01/23 14:50 Penicillins Allergy Rash/Hives Verified 04/01/23 14:50 Review of Systems ROS Statement: Those systems with pertinent positive or pertinent negative responses have been documented in the HPI. ROS Other: All systems not noted in ROS Statement are negative. Past Medical History Past Medical History: Asthma, Deep Vein Thrombosis (DVT), Osteoarthritis (OA), Pulmonary Embolus (PE), Seizure Disorder Additional Past Medical History / Comment(s): Recently hospitalized with unable to eat/vomiting/L lower abdomin pain. Asthma/athletic, R/L arm DVT/bilateral PEs/anemia/follows with Dr. Corona, migraines, arthritis lumbar spine/low back pain, cervical pain, last seizure 15-20 years ago, L kidney stone, varicosities, duodenitis, gastritis, hemorrhoids. History of Any Multi-Drug Resistant Organisms: None Reported Past Surgical History: Appendectomy, Cholecystectomy, Tonsillectomy, Tubal Ligation, Uterine Ablation Additional Past Surgical History / Comment(s): Nasal surgery, L leg surgery for varicose vein, EGD, colonoscopy Past Anesthesia/Blood Transfusion Reactions: No Reported Reaction, Family History of Problems w/ Anesthesia Additional Past Anesthesia/Blood Transfusion Reaction / Comment(s): Pt has never received blood. Mother has PONV Past Psychological History: Anxiety, Depression Smoking Status: Former smoker Past Alcohol Use History: Occasional Past Drug Use History: Marijuana - Past Family History Father Family Medical History: Diabetes Mellitus, Hyperlipidemia Additional Family Medical History / Comment(s): Heart problems. Mother Family Medical History: Blood Disorder, Cancer, Diabetes Mellitus Additional Family Medical History / Comment(s): MEN1 genetic abnormality/pancreas issues and kidney stones. General Exam Limitations: no limitations General appearance: alert, in distress Head exam: Present: atraumatic, normocephalic, normal inspection Respiratory exam: Present: normal lung sounds bilaterally. Absent: respiratory distress, wheezes, rales, rhonchi, stridor Cardiovascular Exam: Present: regular rate, normal rhythm, normal heart sounds. Absent: systolic murmur, diastolic murmur, rubs, gallop, clicks GI/Abdominal exam: Present: soft, tenderness (LLQ and lower abdomen). Absent: distended Neurological exam: Present: alert, oriented X3, CN II-XII intact Psychiatric exam: Present: normal affect, normal mood Skin exam: Present: warm, dry, intact, normal color. Absent: rash Course Vital Signs 04/01/23 04/01/23 04/01/23 13:08 16:59 18:13 Temperature 98.0 F 98.9 F Pulse Rate 63 79 Respiratory 14 16 Rate Blood Pressure 144/83 135/78 O2 Sat by Pulse 96 97 Oximetry Medical Decision Making - Medical Decision Making This is a 47-year-old female who presents to the emergency department for abdominal pain. Was pt. sent in by a medical professional or institution? @ -No Did you speak to anyone other than the patient for history? @ -No Did you review nursing and triage notes? @ -Yes, and I agree, it is accurate with regards to the patient's symptoms. Were old charts reviewed? @ -No Differential Diagnosis? @ -Differential Abdominal Pain Women: Appendicitis, Cholecystitis, diverticulosis, ischemic bowel, pancreatitis, hepatitis, UTI, gastroenteritis, AAA, incarcerated hernia, bowel obstruction, constipation, inflammatory bowel, hepatitis, peptic ulcer disease, splenic infarction, perforated viscus, vulvitis, ovarian torsion, PID, kidney stone, placenta abruption, this is not meant to be an all-inclusive list EKG interpreted by me (3pts min.)? @ -Not obtained X-rays interpreted by me (1pt min.)? @ -Not obtained CT interpreted by me (1pt min.)? @ -CT scan of the abdomen and pelvis obtained. My interpretation identifies mild wall thickening around the sigmoid colon. U/S interpreted by me (1pt. min.)? @ -Not obtained What testing was considered but not performed? (CT, X-rays, U/S, labs)? Why? @ -None What meds were considered but not given? Why? @ -None Did you discuss the management of the patient with other professionals? @ -No Did you reconcile home meds? @ -No Was smoking cessation discussed for >3mins.? @ -No Was critical care preformed (if so, how long)? @ -No Were there social determinants of health that impacted care today? How? (Homelessness, low income, unemployed, alcoholism, drug addiction, transportation, low edu. Level, literacy, decrease access to med. care, half-way, rehab)? @ -No Was there de-escalation of care discussed even if they declined? (Discuss DNR or withdrawal of care, Hospice)? @ -No What co-morbidities impacted this encounter? (DM, HTN, Smoking, COPD, CAD, Cancer, CVA, Hep., AIDS, mental health diagnosis, sleep apnea, morbid obesity)? @ -Hx of PE/DVT Was patient admitted / discharged? @ -Discharged. Lab work obtained demonstrating leukocytosis and was otherwise unremarkable. CT scan of the abdomen and pelvis obtained demonstrating mild nonspecific colitis. There was no evidence of traumatic injury or other acute process to account for the patient's symptoms. Advised that this may be related to colitis as well as a contusion from the injury she sustained. Symptoms were well controlled in the emergency department and the patient was discharged home in stable condition. Rx for Toradol and zofran provided with dosing instructions reviewed. Otherwise advised follow up with her PCP. Undiagnosed new problem with uncertain prognosis? @ -None Drug Therapy requiring intensive monitoring for toxicity (Heparin, Nitro, Insulin, Cardizem)? @ -None Were any procedures done? @ -None Diagnosis/symptom? @ -Fall, colitis, abdominal pain Acute, or Chronic, or Acute on Chronic? @ -Acute Uncomplicated (without systemic symptoms) or Complicated (systemic symptoms)? @ -Uncomplicated Side effects of treatment? @ -None Exacerbation, Progression, or Severe Exacerbation] @ -Not applicable Poses a threat to life or bodily function? @ -No Return precautions reviewed in depth, the patient is instructed to return to the emergency department with any new, worsening, or concerning symptoms. Patient verbalized understanding. This case was discussed in detail with the attending ED physician, Dr. Henao. Presentation, findings, and treatment plan discussed in detail as well. - Lab Data Result diagrams: 04/01/23 14:07 04/01/23 16:40 Lab Results 04/01/23 04/01/23 04/01/23 Range/Units 14:07 14:07 14:12 WBC 11.7 H (3.8-10.6) k/uL RBC 4.15 (3.80-5.40) m/uL Hgb 13.3 (11.4-16.0) gm/dL Hct 39.4 (34.0-46.0) % MCV 94.9 (80.0-100.0) fL MCH 32.1 (25.0-35.0) pg MCHC 33.8 (31.0-37.0) g/dL RDW 12.6 (11.5-15.5) % Plt Count 222 (150-450) k/uL MPV 8.4 Neutrophils % 71 % Lymphocytes % 22 % Monocytes % 3 % Eosinophils % 1 % Basophils % 1 % Neutrophils # 8.3 H (1.3-7.7) k/uL Lymphocytes # 2.6 (1.0-4.8) k/uL Monocytes # 0.4 (0-1.0) k/uL Eosinophils # 0.1 (0-0.7) k/uL Basophils # 0.1 (0-0.2) k/uL Sodium (137-145) mmol/L Potassium (3.5-5.1) mmol/L Chloride (98-107) mmol/L Carbon Dioxide (22-30) mmol/L Anion Gap mmol/L BUN (7-17) mg/dL Creatinine (0.52-1.04) mg/dL Est GFR (CKD-EPI)AfAm (>60 ml/min/1.73 sqM) Est GFR (CKD-EPI)NonAf (>60 ml/min/1.73 sqM) Glucose (74-99) mg/dL Plasma Lactic Acid Felix 1.1 (0.7-2.0) mmol/L Calcium (8.4-10.2) mg/dL Total Bilirubin (0.2-1.3) mg/dL AST (14-36) U/L ALT (4-34) U/L Alkaline Phosphatase (38-126) U/L Total Protein (6.3-8.2) g/dL Albumin (3.5-5.0) g/dL Amylase (30-110) U/L Lipase (23-300) U/L Urine Color Colorless Urine Appearance Clear (Clear) Urine pH 6.0 (5.0-8.0) Ur Specific [place] 1.012 (1.001-1.035) Urine Protein Negative (Negative) Urine Glucose (UA) Negative (Negative) Urine Ketones Negative (Negative) Urine Blood Small H (Negative) Urine Nitrite Negative (Negative) Urine Bilirubin Negative (Negative) Urine Urobilinogen <2.0 (<2.0) mg/dL Ur Leukocyte Esterase Negative (Negative) Urine RBC 3 (0-5) /hpf Urine WBC 1 (0-5) /hpf Ur Squamous Epith Cells 3 (0-4) /hpf Urine Bacteria Occasional H (None) /hpf Urine Mucus Few H (None) /hpf Urine Yeast (Budding) Occasional H (None) /hpf 04/01/23 Range/Units 16:40 WBC (3.8-10.6) k/uL RBC (3.80-5.40) m/uL Hgb (11.4-16.0) gm/dL Hct (34.0-46.0) % MCV (80.0-100.0) fL MCH (25.0-35.0) pg MCHC (31.0-37.0) g/dL RDW (11.5-15.5) % Plt Count (150-450) k/uL MPV Neutrophils % % Lymphocytes % % Monocytes % % Eosinophils % % Basophils % % Neutrophils # (1.3-7.7) k/uL Lymphocytes # (1.0-4.8) k/uL Monocytes # (0-1.0) k/uL Eosinophils # (0-0.7) k/uL Basophils # (0-0.2) k/uL Sodium 136 L (137-145) mmol/L Potassium 3.8 (3.5-5.1) mmol/L Chloride 109 H (98-107) mmol/L Carbon Dioxide 23 (22-30) mmol/L Anion Gap 4 mmol/L BUN 11 (7-17) mg/dL Creatinine 0.59 (0.52-1.04) mg/dL Est GFR (CKD-EPI)AfAm >90 (>60 ml/min/1.73 sqM) Est GFR (CKD-EPI)NonAf >90 (>60 ml/min/1.73 sqM) Glucose 77 (74-99) mg/dL Plasma Lactic Acid Felix (0.7-2.0) mmol/L Calcium 8.4 (8.4-10.2) mg/dL Total Bilirubin 0.5 (0.2-1.3) mg/dL AST 25 (14-36) U/L ALT 44 H (4-34) U/L Alkaline Phosphatase 92 (38-126) U/L Total Protein 6.3 (6.3-8.2) g/dL Albumin 3.7 (3.5-5.0) g/dL Amylase 44 (30-110) U/L Lipase 49 (23-300) U/L Urine Color Urine Appearance (Clear) Urine pH (5.0-8.0) Ur Specific [place] (1.001-1.035) Urine Protein (Negative) Urine Glucose (UA) (Negative) Urine Ketones (Negative) Urine Blood (Negative) Urine Nitrite (Negative) Urine Bilirubin (Negative) Urine Urobilinogen (<2.0) mg/dL Ur Leukocyte Esterase (Negative) Urine RBC (0-5) /hpf Urine WBC (0-5) /hpf Ur Squamous Epith Cells (0-4) /hpf Urine Bacteria (None) /hpf Urine Mucus (None) /hpf Urine Yeast (Budding) (None) /hpf - Radiology Data Radiology results: report reviewed, image reviewed Disposition Clinical Impression: Fall, Abdominal pain, Colitis Disposition: HOME SELF-CARE Instructions (If sedation given, give patient instructions): Abdominal Pain (ED), Colitis (ED) Additional Instructions: Return to the emergency department with any new, worsening, or concerning symptoms. Take the Toradol with Tylenol as needed for pain relief. If you choose to take the Toradol, do not take any other anti-inflammatories such as ibuprofen, take one or the other. You can take the Zofran up to every 8 hours as needed for nausea and vomiting. Follow up with your primary care provider in 1-2 days. Prescriptions: Ketorolac [Toradol] 10 mg PO Q6HR PRN #15 tab PRN Reason: Pain Ondansetron Odt [Zofran Odt] 4 mg PO Q8HR PRN #15 tab PRN Reason: Nausea And Vomiting Is patient prescribed a controlled substance at d/c from ED?: No Referrals: Mary Ellen Washburn MD [Primary Care Provider] - 1-2 days Time of Disposition: 17:20
[2023-04-01 14:30] LABS: Appearance,Urine Clear (Clear); Bacteria,Urine Occasional /hpf; Bilirubin,Urine Negative (Negative); Blood,Urine Small (Negative); Budding Yeast,Urine Occasional /hpf; Color,Urine Colorless; Glucose,Urine (UA) Negative (Negative); Ketones,Urine Negative (Negative); Leukocyte Esterase,Urine Negative (Negative); Mucus,Urine Few /hpf; Nitrite,Urine Negative (Negative); Protein,Urine Negative (Negative); RBC,Urine 3 /hpf (0-5); Specific Gravity,Urine 1.012 (1.001-1.035); Squamous Epithelial Cell,Urine 3 /hpf (0-4); Urobilinogen,Urine <2.0 mg/dL (<2.0); WBC,Urine 1 /hpf (0-5)
[2023-04-01 14:32] LABS: Basophils # (A) 0.1 k/uL (0-0.2); Basophils % (A) 1 %; Eosinophils # (A) 0.1 k/uL (0-0.7); Eosinophils % (A) 1 %; HCT 39.4 % (34.0-46.0); HGB 13.3 gm/dL (11.4-16.0); Lymphocytes # (A) 2.6 k/uL (1.0-4.8); Lymphocytes % (A) 22 %; MCH 32.1 pg (25.0-35.0); MCHC 33.8 g/dL (31.0-37.0); MCV 94.9 fL (80.0-100.0); Mean Platelet Volume 8.4; Monocytes # (A) 0.4 k/uL (0-1.0); Monocytes % (A) 3 %; Neutrophils # (A) 8.3 k/uL (1.3-7.7); Neutrophils % (A) 71 %; Platelet Count 222 k/uL (150-450); RBC 4.15 m/uL (3.80-5.40); RDW 12.6 % (11.5-15.5); WBC 11.7 k/uL (3.8-10.6)
--- NOTE | 2023-04-01 15:10 | CT ---
EXAMINATION TYPE: CT abdomen pelvis w con DATE OF EXAM: 04/01/2023 COMPARISON: 10/15/2021 HISTORY: 47-year-old female LLQ abdominal pain TECHNIQUE: Contiguous axial scanning of the abdomen and pelvis following administration of 100 ml Iso mario r300 IV contrast. Delayed images through the kidneys and coronal/sagittal reconstructions perfor med. CT DLP: 1043.3 mGycm Automated exposure control for dose reduction was used. FINDINGS: LUNG BASES: No significant abnormality is appreciated. LIVER/GB: Liver remains enlarged at 19.8 cm with markedly diminished attenuation of the liver parench yma. No biliary ductal dilatation. Portal venous system is patent. Gallbladder surgically absent. PANCREAS: No significant abnormality is seen. SPLEEN: No significant abnormality is seen. ADRENALS: No significant abnormality is seen. KIDNEYS: Bilateral renal cortical cysts measuring up to 1.8 cm. Symmetric uptake and excretion of con trast from the kidneys. Nonobstructive 5 mm left renal calculus. BOWEL: No dilated small bowel or free air. No significant stool burden. There is segmental mild circu mferential wall thickening proximal sigmoid colon, coronal image 38. LYMPH NODES: No significant abnormality is seen. OTHER: No significant abnormality is seen. PELVIS: Bladder nondistended. Pelvic phleboliths. Uterus anteverted. Suspect a fundal subserosal fibr oid measuring 1.3 cm. Both ovaries are visualized. There is a 2.2 cm dominant follicle or functional cyst of the right ovary. Mild cul-de-sac free fluid likely physiologic. BONES: Moderate to advanced degenerative disc disease L5-S1. Facet arthropathy lower lumbar spine. IMPRESSION: 1. SHORT SEGMENT CIRCUMFERENTIAL WALL THICKENING PROXIMAL SIGMOID COLON MAY RELATE TO NONDISTENTION O R A NONSPECIFIC MILD COLITIS. 2. 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 APPROPRIATE CLINICAL MANAGEMENT ADVISED. 3. NONOBSTRUCTIVE 5 MM LEFT RENAL CALCULUS. 4. A 2.2 CM DOMINANT FOLLICLE OR FUNCTIONAL CYST OF THE RIGHT OVARY. MILD PELVIC FREE FLUID LIKELY PH YSIOLOGIC.
[2023-04-01 17:05] LABS: ALT 44 U/L (4-34); AST 25 U/L (14-36); African American GFR (CKD) >90 (>60 ml/min/1.73 sqM); Albumin 3.7 g/dL (3.5-5.0); Alkaline Phosphatase 92 U/L (38-126); Amylase 44 U/L (30-110); Anion Gap 4 mmol/L; Blood Urea Nitrogen 11 mg/dL (7-17); Calcium 8.4 mg/dL (8.4-10.2); Carbon Dioxide 23 mmol/L (22-30); Chloride 109 mmol/L (98-107); Glucose 77 mg/dL (74-99); Lipase 49 U/L (23-300); Non-African American GFR(CKD) >90 (>60 ml/min/1.73 sqM); Potassium 3.8 mmol/L (3.5-5.1); Sodium 136 mmol/L (137-145); Total Bilirubin 0.5 mg/dL (0.2-1.3); Total Protein 6.3 g/dL (6.3-8.2)
[2023-04-01] MEDS ORDERED: HYDROmorphone 1 MG/ML 1 ML SYRINGE IVP STA (17:24)
[2023-04-01] MEDS ORDERED: LIDOCAINE 4% PATCH TOPICAL ONE (17:24)
[2023-04-01] MEDS ORDERED: ONDANSETRON 4 MG ODT STARTER PACK 2 TAB BTL PO STA (17:25)
[2023-04-01] MEDS ORDERED: DEXAMETHASONE SOD PHOSPHATE 10 MG/ML 1 ML VIAL IVP STA (17:25)
[2023-04-01] MEDS ORDERED: traMADol 50 MG STARTER PACK 3 TAB BTL PO STA (17:25)
[2023-04-01 18:17] VITALS: BP 135/78; PULSE 79; RESP 16; TEMP 98.9
== END 2023-04-01 18:38 | disposition home or self-care (01) ==
LOC: EC 12:57
DX: K52.9 Noninfective gastroenteritis and colitis, unspecified (principal); J45.909 Unspecified asthma, uncomplicated; F12.90 Cannabis use, unspecified, uncomplicated; Z86.59 Personal history of other mental and behavioral disorders; Z87.891 Personal history of nicotine dependence
CPT/HCPCS: 36415; 80053; 82150; 83605; 83690; 85025; 81001; 74177; 99284; 96374; 96375 ×3; J1100; J2405; J1170; J1885; S0119; Q9967

== ENCOUNTER 2023-05-07 12:16 | Emergency (ER) | payer OTHER ==
[2023-05-07 12:37] VITALS: RESP 18; TEMP 98.3
--- NOTE | 2023-05-07 12:46 | ED ---
General Adult HPI - General Chief complaint: Recheck/Abnormal Lab/Rx Stated complaint: High blood pressure Time Seen by Provider: 05/07/23 12:26 Source: patient, RN notes reviewed Mode of arrival: ambulatory Limitations: no limitations - History of Present Illness Initial comments: 47-year-old female presents emergency department chief complaint of hyper tension. Patient states she was at her dentist today in which her blood pressure was elevated. She states that they would not pull her tooth until her blood pressure was improved. She states that she does not follow-up regularly with states that she may have high blood pressure as it has been elevated in the past she denies chest pain or shortness of breath. She does have a history of blood clots in which she is on anticoagulants. She denies any headache dizziness chest pain palpitations nausea vomiting - Related Data Home Medications Medication Instructions Recorded Confirmed Cetirizine HCl [Zyrtec] 10 mg PO DAILY 05/07/23 05/07/23 Rivaroxaban [Xarelto] 20 mg PO HS@199905/07/23 05/07/23 Previous Rx's Medication Instructions Recorded lisinopriL [Prinivil] 10 mg PO DAILY #30 tab 05/07/23 Allergies Allergy/AdvReac Type Severity Reaction Status Date / Time apixaban [From Eliquis] Allergy Rash/Hives Verified 05/07/23 14:25 ofloxacin [From Floxin] Allergy Rash/Hives Verified 05/07/23 14:25 Penicillins Allergy Rash/Hives Verified 05/07/23 14:25 Review of Systems ROS Statement: Those systems with pertinent positive or pertinent negative responses have been documented in the HPI. ROS Other: All systems not noted in ROS Statement are negative. Past Medical History Past Medical History: Asthma, Deep Vein Thrombosis (DVT), Osteoarthritis (OA), Pulmonary Embolus (PE), Seizure Disorder Additional Past Medical History / Comment(s): Recently hospitalized with unable to eat/vomiting/L lower abdomin pain. Asthma/athletic, R/L arm DVT/bilateral PEs/anemia/follows with Dr. Corona, migraines, arthritis lumbar spine/low back pain, cervical pain, last seizure 15-20 years ago, L kidney stone, varicosities, duodenitis, gastritis, hemorrhoids. History of Any Multi-Drug Resistant Organisms: None Reported Past Surgical History: Appendectomy, Cholecystectomy, Tonsillectomy, Tubal Ligation, Uterine Ablation Additional Past Surgical History / Comment(s): Nasal surgery, L leg surgery for varicose vein, EGD, colonoscopy Past Anesthesia/Blood Transfusion Reactions: No Reported Reaction, Family History of Problems w/ Anesthesia Additional Past Anesthesia/Blood Transfusion Reaction / Comment(s): Pt has never received blood. Mother has PONV Past Psychological History: Anxiety, Depression Smoking Status: Former smoker Past Alcohol Use History: Occasional Past Drug Use History: Marijuana - Past Family History Father Family Medical History: Diabetes Mellitus, Hyperlipidemia Additional Family Medical History / Comment(s): Heart problems. Mother Family Medical History: Blood Disorder, Cancer, Diabetes Mellitus Additional Family Medical History / Comment(s): MEN1 genetic abno rmality/pancreas issues and kidney stones. General Exam Limitations: no limitations General appearance: alert, in no apparent distress Head exam: Present: atraumatic, normocephalic, normal inspection Eye exam: Present: normal appearance, PERRL, EOMI. Absent: scleral icterus, conjunctival injection, periorbital swelling ENT exam: Present: normal exam, mucous membranes moist Neck exam: Present: normal inspection, full ROM. Absent: tenderness, meningismus, lymphadenopathy Respiratory exam: Present: normal lung sounds bilaterally. Absent: respiratory distress, wheezes, rales, rhonchi, stridor Cardiovascular Exam: Present: regular rate, normal rhythm, normal heart sounds. Absent: systolic murmur, diastolic murmur, rubs, gallop, clicks GI/Abdominal exam: Present: soft, normal bowel sounds. Absent: distended, tenderness, guarding, rebound, rigid Course Vital Signs 05/07/23 05/07/23 05/07/23 12:30 13:05 13:51 Temperature 98.3 F Pulse Rate 66 90 Respiratory 18 18 Rate Blood Pressure 198/91 178/89 145/88 O2 Sat by Pulse 98 98 Oximetry Medical Decision Making - Medical Decision Making Was pt. sent in by a medical professional or institution (JOSH Patel, RN CORRECTIONS, urgent care, hospital, or longterm...) When possible be specific @ -Dentist Did you speak to anyone other than the patient for history (EMS, parent, family, police, friend...)? What history was obtained from this source @ -No Did you review nursing and triage notes (agree or disagree)? Why? @ -I reviewed and agree with nursing and triage notes Were old charts reviewed (outside hosp., previous admission, EMS record, old EKG, old radiological studies, urgent care reports/EKG's, longterm records)? Report findings @ -No old charts were reviewed Differential Diagnosis (chest pain, altered mental status, abdominal pain women, abdominal pain men, vaginal bleeding, weakness, fever, dyspnea, syncope, headache, dizziness, GI bleed, back pain, seizure, CVA, palpatations, mental health, musculoskeletal)? @ -Hypertension EKG interpreted by me (3pts min.). @ -As above X-rays interpreted by me (1pt min.). @ -None done CT interpreted by me (1pt min.). @ -None done U/S interpreted by me (1pt. min.). @ -None done What testing was considered but not performed or refused? (CT, X-rays, U/S, labs)? Why? @ -None What meds were considered but not given or refused? Why? @ -None Did you discuss the management of the patient with other professionals (professionals i.e. , PA, RN CORRECTIONS, lab, RT, psych nurse, social science research assistant, yard manager, teacher, administrative officer, vocational case manager)? Give summary @ -No Was smoking cessation discussed for >3mins.? @ -No Was critical care preformed (if so, how long)? @ -No Were there social determinants of health that impacted care today? How? (Homelessness, low income, unemployed, alcoholism, drug addiction, transportation, low edu. Level, literacy, decrease access to med. care, senior care, rehab)? @ -No Was there de-escalation of care discussed even if they declined (Discuss DNR or withdrawal of care, Hospice)? DNR status @ -No What co-morbidities impacted this encounter? (DM, HTN, Smoking, COPD, CAD, Cancer, CVA, ARF, Chemo, Hep., AIDS, mental health diagnosis, sleep apnea, morbid obesity)? @ -None Was patient admitted / discharged? Hospital course, mention meds given and route, prescriptions, significant lab abnormalities, going to OR and other pertinent info. @ -Discharge patient's blood pressures improve patient is currently asymptomatic she had minimally elevated potassium at the lab states it was hemolyzed. Patient will be discharged in stable condition [facility] discussed. Undiagnosed new problem with uncertain prognosis? @ -No Drug Therapy requiring intensive monitoring for toxicity (Heparin, Nitro, Insulin, Cardizem)? @ -No Were any procedures done? @ -No Diagnosis/symptom? @ -[Hypertension Acute, or Chronic, or Acute on Chronic? @ -Acute Uncomplicated (without systemic symptoms) or Complicated (systemic symptoms)? @ -On complicated Side effects of treatment? @ -No Exacerbation, Progression, or Severe Exacerbation? @ -No Poses a threat to life or bodily function? How? (Chest pain, [place], [place], pneumonia, PE, COPD, DKA, ARF, appy, cholecystitis, CVA, Diverticulitis, Homicidal, Suicidal, threat to staff... and all critical care pts) @ -No - Lab Data Result diagrams: 05/07/23 13:01 05/07/23 13:01 Lab Results 05/07/23 05/07/23 Range/Units 13:01 13:01 WBC 9.2 (3.8-10.6) k/uL RBC 4.44 (3.80-5.40) m/uL Hgb 14.2 (11.4-16.0) gm/dL Hct 42.4 (34.0-46.0) % MCV 95.5 (80.0-100.0) fL MCH 32.0 (25.0-35.0) pg MCHC 33.5 (31.0-37.0) g/dL RDW 12.6 (11.5-15.5) % Plt Count 275 (150-450) k/uL MPV 8.4 Neutrophils % 68 % Lymphocytes % 23 % Monocytes % 3 % Eosinophils % 4 % Basophils % 1 % Neutrophils # 6.3 (1.3-7.7) k/uL Lymphocytes # 2.1 (1.0-4.8) k/uL Monocytes # 0.3 (0-1.0) k/uL Eosinophils # 0.3 (0-0.7) k/uL Basophils # 0.1 (0-0.2) k/uL Sodium 138 (137-145) mmol/L Potassium 5.5 H (3.5-5.1) mmol/L Chloride 108 H (98-107) mmol/L Carbon Dioxide 20 L (22-30) mmol/L Anion Gap 10 mmol/L BUN 11 (7-17) mg/dL Creatinine 0.53 (0.52-1.04) mg/dL Est GFR (CKD-EPI)AfAm >90 (>60 ml/min/1.73 sqM) Est GFR (CKD-EPI)NonAf >90 (>60 ml/min/1.73 sqM) Glucose 93 (74-99) mg/dL Calcium 9.1 (8.4-10.2) mg/dL Total Bilirubin 1.2 (0.2-1.3) mg/dL AST 53 H (14-36) U/L ALT 58 H (4-34) U/L Alkaline Phosphatase 89 (38-126) U/L Total Protein 8.0 (6.3-8.2) g/dL Albumin 4.8 (3.5-5.0) g/dL Disposition Clinical Impression: Hypertension Disposition: HOME SELF-CARE Condition: Stable Instructions (If sedation given, give patient instructions): Hypertension (ED) Additional Instructions: Please return to the Emergency Department if symptoms worsen or any other concerns. Prescriptions: lisinopriL [Prinivil] 10 mg PO DAILY #30 tab Is patient prescribed a controlled substance at d/c from ED?: No Referrals: Mary Ellen Washburn MD [Primary Care Provider] - 1-2 days Time of Disposition: 13:45
[2023-05-07] MEDS: lisinopriL 10 MG TAB PO STA (13:08)
[2023-05-07 13:11] LABS: Basophils # (A) 0.1 k/uL (0-0.2); Basophils % (A) 1 %; Eosinophils # (A) 0.3 k/uL (0-0.7); Eosinophils % (A) 4 %; HCT 42.4 % (34.0-46.0); HGB 14.2 gm/dL (11.4-16.0); Lymphocytes # (A) 2.1 k/uL (1.0-4.8); Lymphocytes % (A) 23 %; MCHC 33.5 g/dL (31.0-37.0); MCV 95.5 fL (80.0-100.0); Mean Platelet Volume 8.4; Monocytes # (A) 0.3 k/uL (0-1.0); Monocytes % (A) 3 %; Neutrophils # (A) 6.3 k/uL (1.3-7.7); Neutrophils % (A) 68 %; Platelet Count 275 k/uL (150-450); RBC 4.44 m/uL (3.80-5.40); RDW 12.6 % (11.5-15.5); WBC 9.2 k/uL (3.8-10.6)
[2023-05-07 13:31] LABS: ALT 58 U/L (4-34); AST 53 U/L (14-36); African American GFR (CKD) >90 (>60 ml/min/1.73 sqM); Albumin 4.8 g/dL (3.5-5.0); Alkaline Phosphatase 89 U/L (38-126); Anion Gap 10 mmol/L; Blood Urea Nitrogen 11 mg/dL (7-17); Calcium 9.1 mg/dL (8.4-10.2); Carbon Dioxide 20 mmol/L (22-30); Chloride 108 mmol/L (98-107); Glucose 93 mg/dL (74-99); Non-African American GFR(CKD) >90 (>60 ml/min/1.73 sqM); Potassium 5.5 mmol/L (3.5-5.1); Sodium 138 mmol/L (137-145); Total Bilirubin 1.2 mg/dL (0.2-1.3)
[2023-05-07 14:10] VITALS: BP 145/88; PULSE 90
== END 2023-05-07 14:04 | disposition home or self-care (01) ==
LOC: EC 12:16
DX: I10 Essential (primary) hypertension (principal); J45.909 Unspecified asthma, uncomplicated; F12.90 Cannabis use, unspecified, uncomplicated; Z87.891 Personal history of nicotine dependence; Z86.59 Personal history of other mental and behavioral disorders; Z88.0 Allergy status to penicillin; Z88.8 Allergy status to other drugs, medicaments and biological substances
CPT/HCPCS: 36415; 80053; 85025; 99283

== ENCOUNTER → 2023-12-31 | Outpatient (CLI) | payer OTHER ==
--- NOTE | 2023-12-31 07:41 | US ---
EXAMINATION TYPE: US abdomen limited DATE OF EXAM: 12/31/2023 COMPARISON: 04/01/2023 CLINICAL INDICATION: Female, 48 years old with history of R79.89 ABNORMAL FINDINGS OF BLOOD CHEMISTRY ; LFTs TECHNIQUE: Grayscale and color Doppler imaging of the right upper quadrant was performed. FINDINGS: EXAM MEASUREMENTS: Liver Length: 15.8 cm Gallbladder Wall: Surgically absent CBD: 0.5 cm Right Kidney: 10.9x4.7x5.[address] LIGHT WIRER NOTES: Pancreas: Tail obscured by overlying bowel gas Liver: echogenic , no mass is dilated ducts are cysts. Gallbladder: Surgically absent Evidence for sonographic Kovacs's sign: No CBD: wnl Right Kidney: two complex cystic areas, upper pole area measures 2.0x2.0x1.8cm, lower pole area suzie ures 1.8x1.6x2.0cm with posterior areas of calcification exam limited by bowel and habitus IMPRESSION: 1. No evidence for acute process. 2. Hepatic steatosis. 3. Right renal cysts possibly within septations. These had a is a simple appearance on 04/01/2023 CT. [facility] Bautista, , 12/31/2023 7:38 AM
== END | disposition home or self-care (01) ==
LOC: RADUSWWP 06:55
PROVIDERS: ATTEND Family Medicine
DX: R79.89 Other specified abnormal findings of blood chemistry
CPT/HCPCS: 76705

== ENCOUNTER → 2024-02-03 | Outpatient (CLI) | payer OTHER ==
--- NOTE | 2024-02-03 16:57 | CT ---
EXAMINATION TYPE: CT abdomen w con DATE OF EXAM: 02/03/2024 4:03 PM COMPARISON: 04/01/2023, 12/31/2023 ultrasound. CLINICAL INDICATION: Female, 48 years old with history of N28.1 CYST OF KIDNEY, ACQUIRED; abdominal p ain TECHNIQUE: Axial CT abdomen w con;Sagittal and coronal reformats were created on a separate workstat ion. Contrast used:100 mL of Isovue 370 with IV Contrast, (none if empty) Oral contrast used: with Oral Contrast (none if empty) CT DLP: 856.4 mGycm, Automated exposure control for dose reduction was used. FINDINGS: LOWER CHEST: Unremarkable ABDOMEN LIVER: Diffusely hypoattenuating parenchyma. GALLBLADDER AND BILE DUCTS: The gallbladder is surgically absent. PANCREAS: Unremarkable. SPLEEN: Unremarkable. ADRENAL GLANDS: Unremarkable. KIDNEYS AND URETERS: No evidence of hydronephrosis. Nonobstructing left 5 mm calculus.. The ureters a re unremarkable. Simple appearing bilateral renal cysts. No abnormal suspicious enhancement of the ki dneys. STOMACH AND BOWEL: No evidence of bowel obstruction. PERITONEUM/RETROPERITONEUM: No evidence of pneumoperitoneum or free fluid. VASCULATURE: No evidence of aortic aneurysm. MUSCULOSKELETAL: No acute osseous abnormalities LYMPH NODES: No gross evidence for lymphadenopathy. SOFT TISSUE/ABDOMINAL WALL: Unremarkable IMPRESSION: 1. Simple appearing bilateral renal cysts.. 2. No evidence for acute abdominal process. 3. Hepatic steatosis. 4. Nonobstructing left renal calculus. [facility] B[facility], , 02/03/2024 4:55 PM
== END | disposition home or self-care (01) ==
LOC: RADCTMAIN 14:59
PROVIDERS: ATTEND Family Medicine
DX: N28.1 Cyst of kidney, acquired (principal); K76.0 Fatty (change of) liver, not elsewhere classified; N20.0 Calculus of kidney
CPT/HCPCS: 74160; Q9967